=== PATIENT | male | born 1935 | race Caucasian/White ===

== ENCOUNTER → 2016-07-23 19:44 | Outpatient (CLI) | payer MEDICARE, BC ==
[2013-12-03 13:33] VITALS: BMI 31.3
[~2016-07-23 19:44] MED LIST: AMBIEN10 MG PO; ATIVAN1 MG; CHILDREN'S ASPI81 MG PO; LISINOPRIL5 MG PO; LOPRESSOR25 MG PO; MYFORTIC360 MG PO; PACERONE100 MG PO; PEPCID40 MG PO; PREDNISONE5 MG PO; PRILOSEC20 MG PO; SANDIMMUNE100 MG PO
[2016-07-23 21:03] LABS: ANION GAP 12.2 mmol/L (8-16); CALCIUM 9.6 mg/dL (8.5-10.1); CARBON DIOXIDE 24.4 mmol/L (21.0-32.0); CREATININE - SERUM 1.4 mg/dL (0.6-1.3); MAGNESIUM - SERUM 1.6 mg/dL (1.8-2.4); POTASSIUM - SERUM 4.6 mmol/L (3.5-5.1); T4 THYROXINE 3.8 ug/dL (4.7-13.3); THYROID STIMULATING HORMONE 1.23 uIU/mL (0.36-3.74)
== END | disposition home or self-care (01) ==
LOC: D.LABREF 19:44
PROVIDERS: Internal Medicine Cardiovascular Disease
DX: I48.91 Unspecified atrial fibrillation (principal); I25.10 Atherosclerotic heart disease of native coronary artery without angina pectoris

== ENCOUNTER 2018-12-09 13:05 | Observation (INO) | payer MEDICARE, BC ==
[~2018-12-09] VITALS: Ht 175.3 cm; Wt 87.3 kg
--- NOTE | ~2018-12-09 | HEMODYNAMI ---
PATIENT:TOM SIMS MEDICAL RECORD: [id number] : 35 LOCATION:[facility] D.2124 ADMISSION DATE: 12/09/18 Generatedon:12/10/20187:53 Patient name: TOM SIMS Patient #: [id number] SSN: [id number] : 1935 Date of study: 12/10/2018 Page: Of Hemodynamic Procedure Report Patient Data Patient Demographics Procedure consent was obtained First Name: TOM Gender: Male Last Name: LEVI : 1935 Middle Initial: A Age: 83 year(s) Patient #: [id number] Race: SSN: [id number] Additional ID: [id number] Contact details Address: [address] [place] [address] State: [place] City: [place] Zip code: [address] Past Medical History Allergies Allergen Reaction Date Comments Reported Other allergy 12/10/2018 ASPIRIN Admission Admission Data Admission Date: 12/09/2018 Admission Time: 13:05 Arrival Date: 12/10/2018 Arrival Time: 0:00 Admit Source: Other Insurance Payor: Medicare Room #: D.2124 [facility] #: [id number] Height (in.): 68.9 BSA: 2.03 (m2) Height (cm.): 175 BMI: 28.41 (kg/m2) Weight (lbs.): 191.8 Weight (kg.): 87 Lab Results Lab Result Date: 12/10/2018 Lab Result Time: 0:00 Biochemistry Name Units Result Min Max BUN mg/dl 23 --(----)-* 7 18 Creatinine mg/dl 1.2 --(---*)-- 0.6 1.3 eGFR ml/min 61.18499 *-(----)-- 90 120 NONAFRICAN Troponin l ng/ml 0.081 --(----)-* 0 0.06 CBC Name Units Result Min Max Hemoglobin g/dl 14.4 --(*---)-- 13.5 17.5 Procedure Procedure Types Cath Procedure Diagnostic Procedure [facility] w/Coronaries Sedation Charges Moderate Sedation up to 30 minutes Peripheral Cath Diagnostic Procedure Abd/Extremity Aortagram Procedure Description Procedure Date Procedure Date: 12/10/2018 Procedure Start Time: 7:27 Procedure End Time: 7:51 Procedure Staff Name Function Jose Trevino MD Performing Physician Vandana Teran RT Monitor Allison Ansari RT Monitor John Briggs RN Nurse Ligia Kohler RT Scrub Indication Chest pain Procedure Data Cath Procedure Fluoroscopy Diagnostic fluoroscopy Total fluoroscopy Time: 4.6 time: 4.6 min min Diagnostic fluoroscopy Total fluoroscopy dose: 510 dose: 510 mGy mGy Contrast Material Contrast Material Type Amount (ml) Isovue 300 84 Entry Location Entry Primary Successful Side Size Upsize Upsize Entry Closure Succes sful Closure Location (Fr) 1 (Fr) 2 (Fr) Remarks Device Remarks Femoral Right 5 Fr Exoseal artery Estimated blood loss: 5 ml Diagnostic catheters Device Type Used For End Catheter Placement MULTIPACK JL 4.0 5Fr Left Coronary catheter Angiography MULTIPACK 3DRC 5Fr Right Coronary catheter Angiography MULTIPACK Pigtail 5 Fr LV Angiography catheter Procedure Complications No complications Procedure Medications Medication Administration Route Dosage Oxygen etCO2 Nasal cannula 2 l/min Lidocaine 2% added to field 20 Heparin Flush Bag added to field 2 bags (1000units/500ml NS) 0.9% NaCl I.V. 75 ml/hr Versed I.V. 1 mg Fentanyl I.V. 50 mcg Versed I.V. 1 mg Fentanyl I.V. 50 mcg Hemodynamics Rest BSA: 2.03 (m2) HGB: 14.4 (g/dl) O2 Consumption: Estimated: 228.09 (ml/min) O2 Co nsumption indexed: Estimated:112.36 (ml/min/m) Heart Rate: 66 (bpm) Pressure Samples Time Site Value (mmHg) Purpose Heart Use Rate(bpm) 7:37 LV 132/1,11 Snapshot 90 7:38 AO 120/58(84) Pullback 67 7:38 LV 102/3,7 Pullback 67 Gradients Valve Time Site 1 Site 2 Mean SEP/DFP Peak To Heart Use (mmHg) (sec/min) Peak Rate (mmHg) (bpm) Aortic 7:38 LV AO 0 5 0 67 102/3,7 120/58(84) Calculations Valve P-P Mean Valve Index Valve Source Name Gradient Area Flow (cm2) Aortic 0 0 0 0 Snapshots Pre Cath Intra NCS Post Cath Vital Signs Time Heart Resp SPO2 etCO2 NIBP (mmHg) Rhythm Pain Sedation Rate (ipm) (%) (mmHg) Status Level (bpm) 7:12:17 67 21 98 19.5 140/78(128) NSR 0 (11) 10(A) , No pain 7:16:39 72 22 97 0 136/77(116) NSR 0 (11) 10(A) , No pain 7:20:59 65 17 95 0 130/68(110) NSR 0 (11) 10(A) , No pain 7:25:17 64 18 95 14.3 127/70(107) NSR 0 (11) 9(A) , No pain 7:29:36 65 17 95 0 123/73(105) NSR 0 (11) 9(A) , No pain 7:33:50 64 11 96 9 125/67(103) NSR 0 (11) 9(A) , No pain 7:37:56 90 16 95 24 100/84(92) NSR 0 (11) 9(A) , No pain 7:42:51 65 15 96 10.5 123/72(103) NSR 0 (11) 10(A) , No pain 7:47:08 65 14 97 9.7 129/73(113) NSR 0 (11) 10(A) , No pain 7:51:22 65 17 97 8.2 126/81(108) NSR 0 (11) 10(A) , No pain Medications Time Medication Route Dose Verified Delivered Reason Notes Effe ctiveness by by 7:12:21 Oxygen etCO2 2 Jose Buffie used for Nasal l/min Uriel Briggs RN procedure cannula 7:12:30 Lidocaine 2% added 20ml Jose Jose for local to vial Uriel Trevino MD anesthetic field 7:12:36 Heparin Flush added 2 Jose Jose used for Bag to bags Uriel Trevino MD procedure (1000units/500ml field NS) 7:12:45 0.9% NaCl I.V. 75 Jose Buffie Per ml/hr Uriel Briggs RN physician 7:20:03 Versed I.V. 1 mg Jose Buffie for Uriel Briggs RN sedation 7:20:09 Fentanyl I.V. 50 Jose Dylonie for mcg Uriel Briggs RN sedation 7:28:36 Versed I.V. 1 mg Jose John for Uriel Briggs RN sedation 7:28:39 Fentanyl I.V. 50 Jose Dylonie for mcg Uriel Briggs RN sedation Procedure Log Time Note 6:51:54 Informed consent obtained and on chart 6:52:44 Indication : Chest pain 6:52:54 Procedure Status Urgent Heart Cath (IP). 6:52:58 John Briggs RN sent for patient. Start room use. 6:53:00 Time tracking: Regular hours (M-F 7:00 - 5:00) 6:53:08 Plan of Care:Hemodynamics will remain stable., Cardiac rhythm will remain stable., Comfort level will be maintained., Respiratory function will remain adequate., Patient/ family verbilizes understanding of procedure., Procedure tolerated without complication., Recovers from procedure without complications.. 6:53:28 ACC Patient presents with Stable Angina CCS Anginal Class 2--Slight limitation of ordinary activity. 6:59:17 Arrival Date: 12/10/2018 12:00:00 AM 6:59:36 Admit Source: Other 6:59:53 Insurance Payor : Medicare 6:59:56 Patient Height : 68.9 inches 7:00:01 Patient Weight : 191.8 lbs 7:01:35 Lab Result : Hemoglobin 14.4 g/dl 7:01:35 Lab Result : eGFR NONAFRICAN 61.07855 ml/min 7:01:35 Lab Result : Troponin l 0.081 ng/ml 7:01:35 Lab Result : BUN 23 mg/dl 7:01:35 Lab Result : Creatinine 1.2 mg/dl 7:01:49 Patient received from Med II to CCL 1 Alert and oriented. Tansferred to table in Supine position. 7:02:27 Patient allergic to Other allergyASPIRIN 7:10:51 ACCPatient has been prescribed/administered the following anti-anginal medication within the last 2 weeks: None 7:10:55 Warm blankets applied, and inocencia hugger turned on for patient comfort. 7:10:56 Correct patient and procedure confirmed by team. 7:10:57 ECG and BP/O2 sat monitors applied to patient. 7:11:00 Vital chart was started 7:11:02 Baseline sample Acquired. 7:11:10 Rhythm: sinus rhythm 7:11:12 Full Disclosure recording started 7:11:13 7:11:22 H&P Date Dictated: 12/10/2018 Within 30 days and on chart.. 7:11:24 Pre-procedure instructions explained to patient. 7:11:25 Pre-op teaching completed and patient verbalized understanding. 7:11:43 Family in patients room. 7:11:45 Patient NPO since Midnight. 7:12:15 Is the patient allergic to Iodine/contrast media? No. 7:12:21 Oxygen 2 l/min etCO2 Nasal cannula was administered by John Briggs RN; used for procedure; Verbal order read back and verified. 7:12:30 Lidocaine 2% 20ml vial added to field was administered by Jose Trevino MD; for local anesthetic; Verbal order read back and verified. 7:12:36 Heparin Flush Bag (1000units/500ml NS) 2 bags added to field was administered by Jose Trevino MD; used for procedure; Verbal order read back and verified. 7:12:40 Was the patient premedicated? Yes 7:12:43 Is patient on blood thinner?No 7:12:45 0.9% NaCl 75 ml/hr I.V. was administered by John Briggs RN; Per physician; Verbal order read back and verified. 7:13:00 Patient diabetic? No. 7:13:04 ----Pre-sedation anethsthesia assessment.---- 7:13:29 Previous problem with sedation/anesthesia? No ? 7:13:32 Snore? Yes 7:13:34 Sleep apnea? No 7:13:36 Deviated septum? No 7:13:38 Opens mouth fully? Yes 7:13:41 Sticks out tongue? Yes 7:13:45 Airway obstruction? No ? 7:13:56 Dentures? Yes IN TIGHT 7:14:43 Pre procedure: right dorsailis pedis pulse 1+ Palpable, but thready & weak; easily obliterated 7:14:52 Patient pain scale 0/10 ?. 7:15:04 IV patent on arrival in right hand with 0.9% NaCl at [facility]. 7:15:15 Lab results completed and on chart. 7:15:23 Risk of Mortality: 0.1 7:15:27 Risk of blood transfusion: 0.3 7:15:32 Risk of HAO: 0.7 7:15:37 Right groin area was prepped with chlora-prep and draped in sterile fashion 7:15:40 Alarms reviewed by R. N. 7:15:41 Sharps counted by scrub and verified by R.N. 7:15:56 Physician arrived 7:15:58 --------ALL STOP TIME OUT------ 7:15:59 Final Timeout: patient, procedure, and site verified with staff and physician. All members of the team are in agreement. 7:16:02 Right groin site verified by team. 7:16:08 Fire Safety Assessment: A--An alcohol-based skin anteseptic being used preoperatively., C--Open oxygen or nitrous oxide is being used., D--An ESU, laser, or fiber-optic light is being used. 7:16:22 Physical assessment completed. ASA score P 3 - A patient with severe systemic disease as per Jose Trevino MD. 7:16:29 2) 60-89 Mildly reduced kidney function, and other findings (as for stage 1) point to kidney disease. 7:16:35 Maximum allowable contrast dose (3.7 X eGFR X 0.75)169 ml. 7:16:41 Sedation plan: IV Moderate Sedation Medication:Versed, Fentanyl 7:16:49 Use device set Femoral Dx 7:16:51 ACIST Syringe (10902) opened to sterile field. 7:16:51 Bag Decanter () opened to sterile field. 7:16:52 Medline Cath Pack ([id number]) opened to sterile field. 7:16:55 ACIST Hand Control (28029) opened to sterile field. 7:16:56 ACIST Manifold (59129) opened to sterile field. 7:16:57 DIAGNOSTIC Multipack 5Fr catheter set (RD3000) opened to sterile field. 7:16:58 Tegaderm 4 x 4 (1626W) opened to sterile field. 7:17:00 SHEATH 5FR Lamont (EXG131) opened to sterile field. 7:17:01 EMERALD Guide Wire (336-027) opened to sterile field. 7:20:03 Versed 1 mg I.V. was administered by John Briggs RN; for sedation; Verbal order read back and verified. 7:20:09 Fentanyl 50 mcg I.V. was administered by John Briggs RN; for sedation; Verbal order read back and verified. 7:21:52 PT HAS HAD KIDNEY TRANSPLANT. USING RIGHT GROIN TO SAVE ON CONTRAST. 7:23:01 Zero performed for pressure channel P1 7:27:07 Procedure started. 7:27:44 Local anesthetic to right femoral artery with Lidocaine 2% by Jose Trevino MD.INITIAL ACCESS ONLY 7:28:36 Versed 1 mg I.V. was administered by John Briggs RN; for sedation; Verbal order read back and verified. 7:28:39 Fentanyl 50 mcg I.V. was administered by John Briggs RN; for sedation; Verbal order read back and verified. 7:29:02 A 5 Fr sheath was inserted into the Right Femoral artery 7:29:25 A MULTIPACK JL 4.0 5Fr catheter was advanced over the wire and used for Left Coronary Angiography. 7:30:50 LCA angiography performed. 7:31:06 Injector settings: Ml/sec: 3, Volume: 6, 7:32:41 Catheter removed. 7:32:59 A MULTIPACK 3DRC 5Fr catheter was advanced over the wire and used for Right Coronary Angiography. 7:34:25 RCA angiography performed. 7:34:43 ACCDominant side:Right 7:36:24 Catheter removed. 7:36:33 A MULTIPACK Pigtail 5 Fr catheter was advanced over the wire and used for LV Angiography. 7:37:45 LV gram done using LEZAMA 7:38:03 LV hemodynamics recorded. 7:38:26 EF : 60 % 7:38:45 Injector settings: Ml/sec: 10, Volume: 20, 7:41:31 CATH PULLED DOWN TO BIFIRCATION FOR IMAGING. 7:41:52 Abdominal Aortagram was performed. 7:42:08 Injector settings: Ml/sec: 10, Volume: 20, 7:44:44 Catheter removed. 7:44:46 EXOSEAL 5Fr (EX500) opened to sterile field. 7:45:05 Sheath removed intact; hemostasis achieved with Exoseal to the Right Femoral artery. 7:45:57 Procedure ended.(Physican Out) 7:47:01 Fluoroscopy time 04.60 minutes. 7:47:08 Fluoroscopy dose: 510 mGy 7:47:08 Flurop Dose total: 510 7:47:17 Dose Area Product 14150 mGy/cm. 7:47:25 Contrast amount:Isovue 300 84ml. 7:47:31 Maximum allowable dose exceeded? No. 7:47:32 Sharps counted by scrub and verified by R.N. 7:47:35 Insertion/operative site no bleeding no hematoma. 7:47:40 Post-op/insertion site Right Femoral artery dressed using a 4 x 4 and Tegaderm. 7:47:47 Post right femoral artery:stable 7:47:50 Post Procedure Pulses reassessed and unchanged 7:47:56 Post-procedure physical assessment completed. ASA score P 3 - A patient with severe systemic disease as per Jose Trevino MD. 7:48:01 Post procedure rhythm: unchanged. 7:48:05 Estimated blood loss: 5 ml 7:48:07 Post procedure instruction explained to patient.Patient verbalizes understanding. 7:48:09 Patient needs reinforcement of post procedure teaching. 7:49:15 Procedure type changed to Cath procedure, Diagnostic procedure, LHC, LHC w/Coronaries, Sedation Charges, Moderate Sedation up to 30 minutes, Peripheral Cath Diagnostic Procedure, Abd/Extremity, Aortagram 7:49:46 Procedure and supply charges have been captured, reviewed, submitted and are correct. 7:50:25 Procedure Complication : No complications 7:50:30 Vital chart was stopped 7:50:36 [facility] Findings: mild to moderate CAD (<70%) 7:50:43 Operative report dictated upon procedure completion. 7:50:46 See physician's report for complete and final results. 7:50:53 Report given to [facility]. 7:50:57 Patient transfered to [facility] with Bed. 7:51:01 Procedure ended. 7:51:01 Full Disclosure recording stopped 7:51:04 End room use (Document Last) Device Usage Item Name Manufacture Quantity Catalog Hospital Part Current Minimal L ot# / Number Charge Number Stock Stock Serial# Code ACIST Acist 1 03453 129639 271139 645946 20 Syringe Medical (61132) Systems Inc Bag Microtek 1 2001S 032115 23674 340652 5 Decanter Medical Inc. () Medline Medline 1 [id number] 461228 25223 759010 5 Cath Pack ([id number]) ACIST Hand Acist 1 77277 986218 357314 753344 5 Control Medical (93884) Systems Inc ACIST Acist 1 11116 306539 147197 921301 5 Manifold Medical (89615) Systems Inc DIAGNOSTIC Cardinal 1 [id number] 123989 69992 068576 30 Multipack Health 5Fr catheter set (UW9387) Tegaderm 4 3M 1 1626W [id number] 143032 091441 5 x 4 (1626W) SHEATH 5FR Terumo 1 NCD870 162232 913552 746096 5 Lamont (LZV755) EMERALD Cardinal 1 502-455 695999 760482 448561 5 Guide Wire [facility] (502-455) MULTIPACK Cardinal 1 307327 5 JL 4.0 5Fr Health catheter MULTIPACK Cardinal 1 420907 5 3DRC 5Fr Health catheter MULTIPACK Cardinal 1 763992 5 Pigtail 5 Health Fr catheter EXOSEAL 5Fr Cardinal 1 EX500 996463 214739 041692 10 (EX500) Health Signature Audit [place] Stage Time Signature Unsigned Intra-Procedure 12/10/2018 Allison 7:52:09 AM Elan RT(R) (CV) Intra-Procedure 12/10/2018 John Briggs RN 7:52:44 AM Intra-Procedure 12/10/2018 Jose Trevino MD 7:53:17 AM [facility] [address] [place] [address]
[2018-12-09] MEDS ORDERED: MYSOLINE 50 MG50 MG PO (13:16)
[2018-12-09] MEDS ORDERED: NEURONTIN 300300 MG PO (13:16)
[2018-12-09] MEDS ORDERED: ULORIC40 MG PO (13:17)
[2018-12-09 13:34] VITALS: BP 139/65
[2018-12-09 13:41] VITALS: BP 104/56
[2018-12-09 13:50] LABS: BASOPHILS 0.3 % (0-2); EOSINOPHILS 0.9 % (0-7); HEMATOCRIT 43.1 % (42.0-54.0); HEMOGLOBIN 14.4 g/dL (13.5-17.5); IMMATURE GRANULOCYTES 0.6 % (0-5); LYMPHOCYTES 18.4 % (15-50); MCH 31.2 pg (26.0-34.0); MCHC 33.4 g/dL (31.0-37.0); MCV 93.3 fL (80.0-100.0); MEAN PLATELET VOLUME 10.6 fL (7.4-10.4); MONOCYTES 11.5 % (2-11); NEUTROPHILS 68.3 % (40-80); PLATELET COUNT 118 10x3/uL (130-400); RBC 4.62 10x6/uL (4.20-6.10); RDW 14.1 % (11.5-14.5); WBC 7.1 10x3/uL (4.8-10.8)
[2018-12-09 14:00] LABS: CALC OSMOLALITY 268 mosm/kg (275-300); CALCIUM 9.4 mg/dL (8.5-10.1); CARBON DIOXIDE 24.5 mmol/L (21.0-32.0); CHLORIDE - SERUM 101 mmol/L (98-107); CREATININE - SERUM 1.2 mg/dL (0.6-1.3); GLUCOSE 89 mg/dL (74-106); POTASSIUM - SERUM 4.6 mmol/L (3.5-5.1); SODIUM 133 mmol/L (136-145); UREA NITROGEN 23 mg/dL (7-18); eGFR NON AFRICAN AMERICAN 61 mL/min (90-120)
[2018-12-09 14:29] VITALS: BP 115/66
[2018-12-09 14:34] LABS: ALBUMIN 3.5 g/dL (3.4-5.0); ALKALINE PHOSPHATASE 74 U/L (46-116); ALT (SGPT) 32 U/L (10-68); BILIRUBIN - TOTAL 0.93 mg/dL (0.2-1.3); CKMB 3.8 U/L (0.0-3.6); CREATINE KINASE 36 UL (21-232); PROTEIN - SERUM 6.7 g/dL (6.4-8.2)
[2018-12-09 14:40] LABS: TROPONIN-I 0.065 ng/mL (0.000-0.060)
[2018-12-09 16:35] LABS: ANION GAP 16.4 mmol/L (8-16); CALCIUM 9.4 mg/dL (8.5-10.1); CARBON DIOXIDE 21.2 mmol/L (21.0-32.0); CREATININE - SERUM 1.2 mg/dL (0.6-1.3); POTASSIUM - SERUM 4.6 mmol/L (3.5-5.1)
[2018-12-09 16:41] LABS: CHOL - HDL RATIO 2.7 ratio (2.3-4.9); LDL-HDL RATIO 1.3 ratio (1.5-3.5)
--- NOTE | 2018-12-09 17:38 | NUR ---
RECIVED FROM ER TO ROOM 2124 PER WC.ADMIT ASSESSMENT PER RN
[2018-12-09 18:09] VITALS: BP 140/82; Ht 175.3 cm; Wt 87.3 kg
--- NOTE | 2018-12-09 19:00 | NUR ---
PT SITTING UP IN BED EATING DINNER. HE DENIES PAIN OR NEEDS. VERBALIZED UNDERSTANDING NOT TO EAT OR DRINK ANYTHING AFTER MIDNIGHT FOR HEART CATH TOMORROW. BED LOW AND CALL LIGHT IN REACH.
[2018-12-09 20:00] VITALS: BP 138/70
--- NOTE | 2018-12-09 20:37 | NUR ---
NEHEMIAS ORDONEZ WITH CONTACTED REGARDING RESTARTING PTS HOME MEDICATION OF ATIVAN 1MG AT BEDTIME. ORDER GIVEN TO RESTART.
[2018-12-09 23:00] VITALS: BP 113/50
[2018-12-10 04:30] VITALS: BP 148/50
--- NOTE | 2018-12-10 08:08 | NUR ---
BACK FROM SOCIALLY RESPONSIBLE INVESTMENT ADVISER. ALERT AND ORIENTED. TELEMERTY SHOWS SR.RIGHT GROIN SOFT WITH DRSG DRY AND INTACT. PPP. FAMILY AT BEDSIDE. V/S STABLE
[2018-12-10 08:10] VITALS: BP 127/60
--- NOTE | 2018-12-10 10:22 | NUR ---
RIGHT GROIN SOFT WITH DRG DRY AND INTACT. PPP. WILL MONITOR
[2018-12-10 10:58] LABS: ANION GAP 11.9 mmol/L (8-16); CALCIUM 8.6 mg/dL (8.5-10.1); CARBON DIOXIDE 25.4 mmol/L (21.0-32.0); CREATININE - SERUM 1.1 mg/dL (0.6-1.3); POTASSIUM - SERUM 4.3 mmol/L (3.5-5.1)
--- NOTE | 2018-12-10 11:06 | NUR ---
PT DISCHARGED. IV DCD WITH TIP INTACT. CATH SITE SOFT WITH NO BLEEDING. TO PRIVATE CAR PER WHEEL CHAIR
== END 2018-12-10 11:09 | disposition home or self-care (01) ==
LOC: D.ER 13:05 → D.OPS 13:05 → D.M2 13:05 → OBSVTIME 15:17 → D.OPS 15:17 → EDSTATUS 16:39 → D.OPS 12-10 11:09 → D.M2 12-10 11:09 → EDSTATUS 12-14 08:00 → D.M2 12-14 11:15
PROVIDERS: Family Medicine; Internal Medicine Nephrology; ADMIT Internal Medicine Cardiovascular Disease; ATTEND Internal Medicine Cardiovascular Disease
DX: I25.110 Atherosclerotic heart disease of native coronary artery with unstable angina pectoris (principal); I10 Essential (primary) hypertension; Z94.0 Kidney transplant status

== ENCOUNTER → 2019-01-27 11:57 | Outpatient (CLI) | payer MEDICARE, BC ==
[2018-12-09 18:09] VITALS: BMI 28.4
[~2019-01-27 11:57] MED LIST changes: +MYSOLINE 50 MG50 MG PO; +NEURONTIN 300300 MG PO; +ULORIC40 MG PO
== END | disposition home or self-care (01) ==
LOC: D.US 11:57
PROVIDERS: ATTEND Internal Medicine Cardiovascular Disease
DX: M79.604 Pain in right leg (principal)

== ENCOUNTER → 2019-10-19 11:01 | Outpatient (CLI) | payer MEDICARE, BC ==
[2018-12-09 18:09] VITALS: BMI 28.4
== END | disposition home or self-care (01) ==
LOC: D.HCCECHO 11:01
PROVIDERS: ATTEND Internal Medicine Cardiovascular Disease
DX: I25.10 Atherosclerotic heart disease of native coronary artery without angina pectoris (principal)

== ENCOUNTER → 2019-11-29 19:42 | Outpatient (CLI) | payer MEDICARE, BC ==
[2018-12-09 18:09] VITALS: BMI 28.4
[2019-11-29 20:53] LABS: ANION GAP 16.7 mmol/L (8-16); CARBON DIOXIDE 22.6 mmol/L (21.0-32.0); CREATININE - SERUM 1.2 mg/dL (0.6-1.3); POTASSIUM - SERUM 4.3 mmol/L (3.5-5.1)
== END | disposition home or self-care (01) ==
LOC: D.LABREF 19:42
PROVIDERS: ATTEND Internal Medicine Cardiovascular Disease
DX: N28.9 Disorder of kidney and ureter, unspecified (principal); I10 Essential (primary) hypertension

== ENCOUNTER 2020-05-03 13:09 | Inpatient (IN) | payer MEDICARE, BC ==
[~2020-05-03] VITALS: Ht 175.3 cm; Wt 92.3 kg
[2020-05-03] VITALS (8 sets, daily range): BP systolic 108–159; BP diastolic 50–112; BMI 30.1
[~2020-05-03 13:09] MED LIST changes: -ATIVAN1 MG; +ATIVAN1 MG IV
[2020-05-03] MEDS ORDERED: PLAVIX75 MG PO (13:22)
[2020-05-03 13:36] LABS: CALC OSMOLALITY 284 mosm/kg (275-300); CALCIUM 9.6 mg/dL (8.5-10.1); CARBON DIOXIDE 18.1 mmol/L (21.0-32.0); CHLORIDE - SERUM 102 mmol/L (98-107); CREATININE - SERUM 1.5 mg/dL (0.6-1.3); POTASSIUM - SERUM 3.5 mmol/L (3.5-5.1); SODIUM 139 mmol/L (136-145); UREA NITROGEN 22 mg/dL (7-18); eGFR NON AFRICAN AMERICAN 47 mL/min (90-120)
[2020-05-03 13:37] LABS: GLUCOSE 174 mg/dL (74-106)
[2020-05-03 13:53] LABS: ALBUMIN 3.5 g/dL (3.4-5.0); ALKALINE PHOSPHATASE 107 U/L (30-120); ALT (SGPT) 19 U/L (10-68); AMYLASE - SERUM 59 U/L (25-115); BILIRUBIN - TOTAL 1.53 mg/dL (0.2-1.3); CKMB 1.2 U/L (0.0-3.6); CREATINE KINASE 52 UL (21-232); LIPASE 123 U/L (73-393); PROTEIN - SERUM 6.8 g/dL (6.4-8.2); TROPONIN-I 0.027 ng/mL (0.000-0.060)
[2020-05-03 13:59] LABS: BASOPHILS 0.2 % (0-2); EOSINOPHILS 0.7 % (0-7); HEMATOCRIT 45.1 % (42.0-54.0); HEMOGLOBIN 14.9 g/dL (13.5-17.5); IMMATURE GRANULOCYTES 0.6 % (0-5); LYMPHOCYTE ABS# 4.65 10x3/uL (1.32-3.57); LYMPHOCYTES 36.3 % (15-50); MCH 30.3 pg (26.0-34.0); MCV 91.7 fL (80.0-100.0); MEAN PLATELET VOLUME 11.2 fL (7.4-10.4); MONOCYTES 7.3 % (2-11); NEUTROPHIL ABS# 7.03 10x3/uL (1.78-5.38); NEUTROPHILS 54.9 % (40-80); RBC 4.92 10x6/uL (4.20-6.10); RDW 12.9 % (11.5-14.5); WBC 12.8 10x3/uL (4.8-10.8)
[2020-05-03 14:21] LABS: PLATELET COUNT 185 10x3/uL (130-400)
[2020-05-03 15:06] LABS: BACTERIA MANY HPF (NONE SEEN); BILIRUBIN NEGATIVE (NEGATIVE); KETONE NEGATIVE (NEGATIVE); NITRITE NEGATIVE (NEGATIVE); UROBILINOGEN NORMAL mg/dL (< 2); WHITE CELLS - URINE 0-5 HPF (0-1)
[2020-05-03 15:38] LABS: APTT 31.4 SECONDS (22.8-39.4); INR 1.49 (0.85-1.17); PROTIME 16.7 SECONDS (11.6-15.0)
--- NOTE | 2020-05-03 17:10 | NUR ---
PT ARRIVED TO ICU. PT IS A&OX4. HE HAS A LEFT HAND PIV INFUSING A BOLUS OF LR, ZOFRAN @ 4.6, AND VANC. HE HAS A BRIGGS DRAINING URINE. PT IS CURRENTLY REQUESTING PAIN MEDICATION. HE HAS HAD A LARGE BRIGHT RED BOWEL MOVEMENT. NEHEMIAS CARBONE PAGED. BED LOCKED AND IN LOWEST POSITION, CALL LIGHT WITHIN REACH. WILL CTM
[2020-05-03 18:10] LABS: HEMATOCRIT 43.4 % (42.0-54.0); HEMOGLOBIN 14.2 g/dL (13.5-17.5)
[2020-05-03 22:45] LABS: HEMATOCRIT 41.8 % (42.0-54.0); HEMOGLOBIN 13.8 g/dL (13.5-17.5)
[2020-05-04] VITALS (24 sets, daily range): BP systolic 92–158; BP diastolic 45–102; Ht 175.3 cm; Wt 92.3 kg
[2020-05-04 03:03] LABS: BASOPHILS 0.1 % (0-2); EOSINOPHILS 0 % (0-7); HEMATOCRIT 40.6 % (42.0-54.0); HEMOGLOBIN 13.6 g/dL (13.5-17.5); IMMATURE GRANULOCYTES 0.2 % (0-5); LYMPHOCYTE ABS# 1.92 10x3/uL (1.32-3.57); LYMPHOCYTES 12.6 % (15-50); MCHC 33.5 g/dL (31.0-37.0); MEAN PLATELET VOLUME 10.8 fL (7.4-10.4); MONOCYTES 7.9 % (2-11); NEUTROPHIL ABS# 12.02 10x3/uL (1.78-5.38); NEUTROPHILS 79.2 % (40-80); PLATELET COUNT 148 10x3/uL (130-400); RBC 4.54 10x6/uL (4.20-6.10); RDW 12.8 % (11.5-14.5); WBC 15.2 10x3/uL (4.8-10.8)
[2020-05-04 03:15] LABS: MCV 89.4 fL (80.0-100.0)
[2020-05-04 03:23] LABS: ALBUMIN 2.8 g/dL (3.4-5.0); ANION GAP 19.3 mmol/L (8-16); BILIRUBIN - TOTAL 1.21 mg/dL (0.2-1.3); CALCIUM 8.4 mg/dL (8.5-10.1); CARBON DIOXIDE 18.2 mmol/L (21.0-32.0); MAGNESIUM - SERUM 1.1 mg/dL (1.8-2.4); PHOSPHOROUS 3.2 mg/dL (2.5-4.9); PROTEIN - SERUM 5.6 g/dL (6.4-8.2); VANCOMYCIN - TROUGH 11.1 ug/mL (10.0-20.0)
[2020-05-04 03:44] LABS: CREATININE - SERUM 2.3 mg/dL (0.6-1.3); POTASSIUM - SERUM 4.5 mmol/L (3.5-5.1)
--- NOTE | 2020-05-04 07:07 | NUR ---
PATIENT HAD EPISODES OF BLOODY STOOL X 6 AND EMESIS X 2. STOOL SAMPLE SENT TO LAB FOR CDIFF. AFEBRILE. ALERT AND ORIENTED. SEE FLOWSHEETS FOR DETAILS.
[2020-05-04 07:08] LABS: HEMATOCRIT 37.3 % (42.0-54.0); HEMOGLOBIN 12.4 g/dL (13.5-17.5)
[2020-05-04 10:23] LABS: HEMATOCRIT 37.7 % (42.0-54.0); HEMOGLOBIN 12.6 g/dL (13.5-17.5)
--- NOTE | 2020-05-04 10:54 | NUR ---
Pt resting in bed with eyes closed, no distress noted. Pt has had 2 liquid stools and was cleaned and changed. Assessment per flow sheet, call light in reach, bed in low position. I have talked to his twice and waiting for the MDs to round.
[2020-05-04 13:50] LABS: HEMATOCRIT 37.2 % (42.0-54.0); HEMOGLOBIN 12.3 g/dL (13.5-17.5)
[2020-05-04 17:44] LABS: HEMATOCRIT 38.2 % (42.0-54.0); HEMOGLOBIN 12.8 g/dL (13.5-17.5)
[2020-05-04 17:52] LABS: ANION GAP 16.6 mmol/L (8-16); CALCIUM 8.2 mg/dL (8.5-10.1); CARBON DIOXIDE 18.4 mmol/L (21.0-32.0); CREATININE - SERUM 2.3 mg/dL (0.6-1.3)
[2020-05-05] VITALS (22 sets, daily range): BP systolic 120–171; BP diastolic 59–108
[2020-05-05 05:46] LABS: BASOPHILS 0 % (0-2); EOSINOPHILS 0 % (0-7); HEMATOCRIT 37.3 % (42.0-54.0); HEMOGLOBIN 12.3 g/dL (13.5-17.5); IMMATURE GRANULOCYTES 0.3 % (0-5); LYMPHOCYTE ABS# 0.43 10x3/uL (1.32-3.57); LYMPHOCYTES 4.2 % (15-50); MCH 29.6 pg (26.0-34.0); MCV 89.9 fL (80.0-100.0); MONOCYTES 5.8 % (2-11); NEUTROPHIL ABS# 9.26 10x3/uL (1.78-5.38); NEUTROPHILS 89.7 % (40-80); RBC 4.15 10x6/uL (4.20-6.10); RDW 13.1 % (11.5-14.5)
[2020-05-05 05:50] LABS: PLATELET COUNT 111 10x3/uL (130-400); WBC 10.3 10x3/uL (4.8-10.8)
[2020-05-05 06:14] LABS: ALBUMIN 2.3 g/dL (3.4-5.0); ANION GAP 17.5 mmol/L (8-16); BILIRUBIN - TOTAL 1.14 mg/dL (0.2-1.3); CALCIUM 8.2 mg/dL (8.5-10.1); CARBON DIOXIDE 17.7 mmol/L (21.0-32.0); POTASSIUM - SERUM 4.2 mmol/L (3.5-5.1); PROTEIN - SERUM 5.3 g/dL (6.4-8.2); VANCOMYCIN - TROUGH 12.6 ug/mL (10.0-20.0)
[2020-05-05 06:15] LABS: MAGNESIUM - SERUM 1.5 mg/dL (1.8-2.4); PHOSPHOROUS 4.6 mg/dL (2.5-4.9)
--- NOTE | 2020-05-05 06:32 | NUR ---
I have reviewed this patient and I concur with the Shift Assessment completed by the Licensed Practical Nurse today this shift.
--- NOTE | 2020-05-05 12:24 | NUR ---
Nutrition follow-up: Diet order: clear liquids due to continued bloody stools Pt reports feeling better today; however, pt is somewhat confused Labs reviewed Wt: 203# Pt continues to not meet estimated nutritional needs Will need to begin nutrition support soon if oral diet not able to advance within 48 hours. Follow-up: 05/08/20
[2020-05-06] VITALS (18 sets, daily range): BP systolic 120–183; BP diastolic 69–95
[2020-05-06 04:11] LABS: BASOPHILS 0 % (0-2); EOSINOPHILS 0 % (0-7); HEMATOCRIT 34.9 % (42.0-54.0); HEMOGLOBIN 11.5 g/dL (13.5-17.5); IMMATURE GRANULOCYTES 0.5 % (0-5); LYMPHOCYTE ABS# 0.48 10x3/uL (1.32-3.57); LYMPHOCYTES 5.9 % (15-50); MCH 29.6 pg (26.0-34.0); MCV 89.7 fL (80.0-100.0); MEAN PLATELET VOLUME 10.5 fL (7.4-10.4); MONOCYTES 7.3 % (2-11); NEUTROPHIL ABS# 7.07 10x3/uL (1.78-5.38); NEUTROPHILS 86.3 % (40-80); PLATELET COUNT 95 10x3/uL (130-400); RBC 3.89 10x6/uL (4.20-6.10); RDW 12.9 % (11.5-14.5); WBC 8.2 10x3/uL (4.8-10.8)
[2020-05-06 04:29] LABS: APTT 39.7 SECONDS (22.8-39.4); INR 1.71 (0.85-1.17); PROTIME 18.6 SECONDS (11.6-15.0)
[2020-05-06 04:38] LABS: D-DIMER-QUANTITATIVE 7.22 ug/mLFEU (0.20-0.54)
[2020-05-06 04:43] LABS: ALBUMIN 2.3 g/dL (3.4-5.0); ANION GAP 14.6 mmol/L (8-16); BILIRUBIN - TOTAL 0.87 mg/dL (0.2-1.3); CALCIUM 8.6 mg/dL (8.5-10.1); CARBON DIOXIDE 18.2 mmol/L (21.0-32.0); CREATININE - SERUM 2.1 mg/dL (0.6-1.3); MAGNESIUM - SERUM 1.8 mg/dL (1.8-2.4); PHOSPHOROUS 3.7 mg/dL (2.5-4.9); POTASSIUM - SERUM 3.8 mmol/L (3.5-5.1); PROTEIN - SERUM 5.2 g/dL (6.4-8.2); VANCOMYCIN - TROUGH 17.6 ug/mL (10.0-20.0)
--- NOTE | 2020-05-06 10:42 | NUR ---
Pt resting in bed and talking with his on the phone. The Pt appears confused this morning, but has periods were he is not as confused. Assessment and vitals per flow sheet, meds per MAR. Pt worked with PT in the bed, no acute distress noted, call light in reach, bed in low position.
--- NOTE | 2020-05-06 17:35 | NUR ---
Pt transfered to rm 2225, Pt transfered in bed and at bedside. Report given to nurse, call light in reach, bed in low position.
--- NOTE | 2020-05-06 18:01 | NUR ---
PATIENT TRANSFERRED FROM ICU AWAKE AND ALERT AT BEDSIDE SKIN WARM AND DRY RESP EVEN AND UNLABORED. AT BEDSIDE. NO COMPLAINTS NOTED. JESSICA.
--- NOTE | 2020-05-07 03:00 | NUR ---
I have reviewed this patient and I concur with the Shift Assessment completed by the Licensed Practical Nurse today this shift.
[2020-05-07 05:43] LABS: BASOPHILS 0.1 % (0-2); EOSINOPHILS 0.1 % (0-7); HEMATOCRIT 33.9 % (42.0-54.0); HEMOGLOBIN 11.1 g/dL (13.5-17.5); IMMATURE GRANULOCYTES 0.3 % (0-5); LYMPHOCYTE ABS# 1.28 10x3/uL (1.32-3.57); LYMPHOCYTES 11.8 % (15-50); MCH 29.4 pg (26.0-34.0); MCHC 32.7 g/dL (31.0-37.0); MCV 89.7 fL (80.0-100.0); MONOCYTES 6.8 % (2-11); NEUTROPHIL ABS# 8.77 10x3/uL (1.78-5.38); NEUTROPHILS 80.9 % (40-80); RBC 3.78 10x6/uL (4.20-6.10); RDW 12.9 % (11.5-14.5)
[2020-05-07 05:48] LABS: PLATELET COUNT 118 10x3/uL (130-400); WBC 10.8 10x3/uL (4.8-10.8)
[2020-05-07 06:06] LABS: ALBUMIN 2.3 g/dL (3.4-5.0); ANION GAP 12.6 mmol/L (8-16); CALCIUM 8.9 mg/dL (8.5-10.1); CARBON DIOXIDE 20.8 mmol/L (21.0-32.0); CREATININE - SERUM 1.7 mg/dL (0.6-1.3); MAGNESIUM - SERUM 1.7 mg/dL (1.8-2.4); PHOSPHOROUS 2.8 mg/dL (2.5-4.9); POTASSIUM - SERUM 3.4 mmol/L (3.5-5.1); PROTEIN - SERUM 5.1 g/dL (6.4-8.2); VANCOMYCIN - TROUGH 12.4 ug/mL (10.0-20.0)
[2020-05-07 08:30] VITALS: BP 178/86
--- NOTE | 2020-05-07 08:36 | NUR ---
RESTING IN BED, FAMILY IN ROOM, IV INFUSING, BRIGGS TO GRAVITY, DR POSADA ROUNDED THIS AM,CONT TO MONITOR
[2020-05-07 12:11] VITALS: BP 182/109
--- NOTE | 2020-05-07 17:34 | NUR ---
MEDICATED FOR ANXIETY, IN ROOM,
[2020-05-07 18:06] VITALS: BP 185/99
--- NOTE | 2020-05-07 18:30 | NUR ---
BP REMAINS ELEVATED, CALL PLACED TO [facility], NEW ORDERS NOTED FOR CLONIDINE, ADMINISTERED FOR BP OF 184/104, WILL PASS ON TO BI DEVELOPER ABOUT CONCERNS, IN ROOM
[2020-05-07 20:00] VITALS: BP 103/82
[2020-05-08] VITALS: BP 146/81
--- NOTE | 2020-05-08 03:00 | NUR ---
I have reviewed this patient and I concur with the Shift Assessment completed by the Licensed Practical Nurse today this shift.
[2020-05-08 04:00] VITALS: BP 137/86
[2020-05-08 07:03] LABS: ALBUMIN 2.5 g/dL (3.4-5.0); ALKALINE PHOSPHATASE 80 U/L (30-120); ALT (SGPT) 25 U/L (10-68); BILIRUBIN - TOTAL 1.46 mg/dL (0.2-1.3); CALCIUM 8.6 mg/dL (8.5-10.1); CARBON DIOXIDE 23.1 mmol/L (21.0-32.0); CHLORIDE - SERUM 106 mmol/L (98-107); GLUCOSE 73 mg/dL (74-106); PHOSPHOROUS 2.4 mg/dL (2.5-4.9); POTASSIUM - SERUM 3.5 mmol/L (3.5-5.1); PROTEIN - SERUM 5.1 g/dL (6.4-8.2); SODIUM 139 mmol/L (136-145); VANCOMYCIN - TROUGH 11.3 ug/mL (10.0-20.0); eGFR NON AFRICAN AMERICAN 76 mL/min (90-120)
[2020-05-08 07:06] LABS: CALC OSMOLALITY 283 mosm/kg (275-300); MAGNESIUM - SERUM 1.2 mg/dL (1.8-2.4); UREA NITROGEN 33 mg/dL (7-18)
[2020-05-08 07:25] LABS: BASOPHILS 0.1 % (0-2); EOSINOPHILS 1.6 % (0-7); HEMATOCRIT 37.9 % (42.0-54.0); HEMOGLOBIN 12.7 g/dL (13.5-17.5); IMMATURE GRANULOCYTES 0.4 % (0-5); LYMPHOCYTE ABS# 1.49 10x3/uL (1.32-3.57); LYMPHOCYTES 13.3 % (15-50); MCH 29.7 pg (26.0-34.0); MCHC 33.5 g/dL (31.0-37.0); MCV 88.6 fL (80.0-100.0); MEAN PLATELET VOLUME 10.1 fL (7.4-10.4); MONOCYTES 10.7 % (2-11); NEUTROPHIL ABS# 8.26 10x3/uL (1.78-5.38); NEUTROPHILS 73.9 % (40-80); PLATELET COUNT 130 10x3/uL (130-400); RBC 4.28 10x6/uL (4.20-6.10); RDW 12.9 % (11.5-14.5); WBC 11.2 10x3/uL (4.8-10.8)
--- NOTE | 2020-05-08 08:45 | NUR ---
ASSESSMENT PER FLOW SHEET. PATIENT IS WITHOUT DISTRESS. DENIES NEEDS.CALL LIGHT IN REACH. BED ALARM ON AND WORKING. AT BEDSIDE.
[2020-05-08 09:06] VITALS: BP 135/69
--- NOTE | 2020-05-08 11:13 | NUR ---
REHAB PRESCREENING Rehab referral received and chart reviewed. Mr. Pizano is a good candidate for acute inpatient rehab if he is agreeable to come. I will begin his electronic screen and he can be admitted to rehab when his physicians feel he is appropriate for discharge. Thank you for this referral! Kathrin Mckeon, CQ DEVELOPER Rehab PD
--- NOTE | 2020-05-08 12:22 | MORECARE ---
CASE MANAGEMENT DISCHARGE SUMMARY PATIENT: TOM SIMS UNIT: [id number] ADM DATE: 05/03/20 AGE: 84 : 35 SEX: M ROOM/BED: D.2225 AUTHOR: NADIA NEIL PHYSICIAN: REFERRING PHYSICIAN: RONALD HANDY MD DATE OF SERVICE: 05/08/20 Case Management Discharge Planning Summary DCP REVIEW SUMMARY ANTICIPATED D/C DATE: EXPECTED LOS : CASE STATUS: DCP Initiated INITIAL REVIEW: 05/03/2020 INITIAL REVIEWER: Aruna Guerra FINAL DISCHARGE DISPOSITION: : FINAL REVIEWER: FINAL REVIEW DATE: DCP Focus Questions & Answers DCP REV -DCP Review Added on: 05/08/20 12:16 pm QUESTION: ANSWER DCP Screen High Risk Factors: : Polypharmacy (greater than 10 meds) DCP Evaluation Patient's ability to cope with chronic illness : d. No chronic illness Mental health screen: : No mental health history Would patient like to participate in any Care Coordination programs (if applicable): : Not applicable Physical Status: : Independent with ADL's Baseline cognitive status: : *Oriented to person, place, situation, time and present Family / Caregiver's ability to cope with chronic illness: : a. Adequate (ability to meet patient's medical needs, ensures patient attends medical appts.) Living Arrangements: : Home with Spouse/Significant Other Medication Management: : Evidence of Polypharmacy (greater than 10 meds) Pharmacy name(s): : [facility] Does Patient have transportation to get home and to follow-up medical appointments when discharged from the hospital? : Yes Does the patient have electricity at home? : Yes Does the patient have running water in their house? : Yes Equipment in use: : Walker - Standard Abuse/Neglect: : None Problems identified by the patient regarding discharge: : VERY WEEK, WILL NEED REHAB Patient's current cognitive status: : Alert Functional screen assessment: : Unable to manage ADLs without immediate ongoing assistance Patient with capacity for self-care or can be cared for in same environment as prior to hospitalization? : No Is there a likelihood that the patient will require additional services to return to the preadmission environment? : Yes Results of this evaluation have been discussed with: : Spouse Patient and/or caregiver agree upon recommended discharge plan? : Yes Planned post hospital services available for patient? : Yes Planned post hospital services covered by insurance plan? : Yes DCP Re-evaluation Would patient like to participate in any Care Coordination programs (if applicable): : Not applicable PATIENT: TOM SIMS ENCOUNTER: [id number] MEDICAL RECORD#: [id number] ADMISSION DATE: 05/03/2020 DISCHARGE DATE: ATTENDING MD: RONALD BLACKMAN : AGE: 84 MARITAL STATUS: M DC PLAN ID: [id number] FACILITY: [facility] PRINTED ON: 05/08/20 12:22 CT All edits/amendments must be made on the electronic document DICTATION DATE: 05/08/20 122 CUSTOMER ASSOCIATE: DM 05/08/20 1222 RPT#: [id number] DC DATE: STATUS: ADM IN [facility] [address] [place] [address] END OF REPORT
--- NOTE | 2020-05-08 12:33 | MORECARE ---
CASE MANAGEMENT DISCHARGE SUMMARY PATIENT: TOM SIMS UNIT: [id number] ADM DATE: 05/03/20 AGE: 84 : 35 SEX: M ROOM/BED: D.2225 AUTHOR: RASHAAD,DOC PHYSICIAN: REFERRING PHYSICIAN: RONALD HANDY MD DATE OF SERVICE: 05/08/20 Case Management Discharge Planning Summary COMMENTS ENTERED DATE: 05/08/20 12:22 CT COMMENT TYPE: Discharge Planning REVIEWER: Aruna Guerra CM met with patient and his Thereas at bedside after obtaining verbal consent. CM discussed availability / needs of home health, REHAB and medical equipment. Identified patient will need inpatient rehab. CM spoke with about inpatient rehab and gave her phone number to inpatient rehab. She wants to talk with them and visit the rehab before she signs the choice form. She states his pcp is Dr. Manuel and he uses a walker at home. He was just in ICU before transferred to [facility], he has become very week and will need rehab prior to going home. I gave my contact information to the and waiting her call back. CM to follow and assist as needed. DCP REVIEW SUMMARY ANTICIPATED D/C DATE: EXPECTED LOS : CASE STATUS: DCP Initiated INITIAL REVIEW: 05/03/2020 INITIAL REVIEWER: Aruna Guerra FINAL DISCHARGE DISPOSITION: : FINAL REVIEWER: FINAL REVIEW DATE: DCP Focus Questions & Answers DCP REV -DCP Review Added on: 05/08/20 12:16 pm QUESTION: ANSWER DCP Screen High Risk Factors: : Polypharmacy (greater than 10 meds) DCP Evaluation Patient's ability to cope with chronic illness : d. No chronic illness Mental health screen: : No mental health history Would patient like to participate in any Care Coordination programs (if applicable): : Not applicable Physical Status: : Independent with ADL's Baseline cognitive status: : *Oriented to person, place, situation, time and present Family / Caregiver's ability to cope with chronic illness: : a. Adequate (ability to meet patient's medical needs, ensures patient attends medical appts.) Living Arrangements: : Home with Spouse/Significant Other Medication Management: : Evidence of Polypharmacy (greater than 10 meds) [facility]acy name([facility]): : [facility] Does Patient have transportation to get home and to follow-up medical appointments when discharged from the hospital? : Yes Does the patient have electricity at home? : Yes Does the patient have running water in their house? : Yes Equipment in use: : Walker - Standard Abuse/Neglect: : None Problems identified by the patient regarding discharge: : VERY WEEK, WILL NEED REHAB Patient's current cognitive status: : Alert Functional screen assessment: : Unable to manage ADLs without immediate ongoing assistance Patient with capacity for self-care or can be cared for in same environment as prior to hospitalization? : No Is there a likelihood that the patient will require additional services to return to the preadmission environment? : Yes Results of this evaluation have been discussed with: : Spouse Patient and/or caregiver agree upon recommended discharge plan? : Yes Planned post hospital services available for patient? : Yes Planned post hospital services covered by insurance plan? : Yes DCP Re-evaluation Would patient like to participate in any Care Coordination programs (if applicable): : Not applicable PATIENT: TOM SIMS ENCOUNTER: [id number] MEDICAL RECORD#: [id number] ADMISSION DATE: 05/03/2020 DISCHARGE DATE: ATTENDING MD: RONALD BLACKMAN : AGE: 84 MARITAL STATUS: M DC PLAN ID: [id number] FACILITY: [facility] PRINTED ON: 05/08/20 12:33 CT All edits/amendments must be made on the electronic document DICTATION DATE: 05/08/20 123 ROUGH AND TRUEING MACHINE OPERATOR: FRACISCO 05/08/20 1233 RPT#: [id number] DC DATE: STATUS: ADM IN [facility] [address] [place] [address] END OF REPORT
[2020-05-08 12:52] VITALS: BP 127/72
--- NOTE | 2020-05-08 13:00 | NUR ---
REMAINS AT BEDSIDE.PATIENT WITHOUT CHANGE.
--- NOTE | 2020-05-08 13:09 | NUR ---
Nutrition follow-up: Diet advanced to regular as tolerated with po intake ~25% of meals Labs reviewed Wt: 204# +BM PO intake slowly improving. Will continue to provide food choices with selective menus and honor food preferences. RDN will order Ensure with meals Follow-up: 05/11/20
[2020-05-08] MEDS ORDERED: PERFOROMIS20 MCG/21 INH (13:13)
[2020-05-08] MEDS ORDERED: ROCEPHIN 1 GM/D51 G1 IV (13:13)
[2020-05-08] MEDS ORDERED: ATROVENT 0.02%2.5 ML UPD (13:13)
[2020-05-08] MEDS ORDERED: Xopenex 0.63 MG INH INH (13:14)
[2020-05-08] MEDS ORDERED: Xopenex 0.63 MG INH UPD (13:14)
[2020-05-08] MEDS ORDERED: NORVASC10 MG PO (13:16)
[2020-05-08] MEDS ORDERED: BETAPACE 80 MG80 MG PO ×2 (13:17→18:28)
[2020-05-08] MEDS ORDERED: PULMICORT0.5 MG/21 UPD (13:18)
[2020-05-08] MEDS ORDERED: LIBRIUM25 MG PO (13:18)
[2020-05-08] MEDS ORDERED: MULTI-DAY VITAM1 TAB PO (13:19)
[2020-05-08] MEDS ORDERED: VITAMIN B-1100 M1 PO (13:19)
[2020-05-08] MEDS ORDERED: FLORAJEN3 CAPS460 MG PO (13:19)
[2020-05-08] MEDS ORDERED: FOLIC ACID1 MG PO (13:19)
--- NOTE | 2020-05-08 14:59 | MORECARE ---
CASE MANAGEMENT DISCHARGE SUMMARY PATIENT: TOM SIMS UNIT: [id number] ADM DATE: 05/03/20 AGE: 84 : 35 SEX: M ROOM/BED: D.2225 AUTHOR: RASHAAD,DOC PHYSICIAN: REFERRING PHYSICIAN: RONALD HANDY MD DATE OF SERVICE: 05/08/20 Case Management Discharge Planning Summary COMMENTS ENTERED DATE: 05/08/20 14:44 CT COMMENT TYPE: Discharge Planning REVIEWER: Aruna Mari PATIENT SIGNED IMM AND VENITA FOR INPATIENT REHAB AT [facility]. ANTICIPATE DC TO REHAB TODAY. CM TO FOLLOW AND ASSIST NEEDED. ENTERED DATE: 05/08/20 12:22 CT COMMENT TYPE: Discharge Planning REVIEWER: Aruna Guerra CM met with patient and his Theresa at bedside after obtaining verbal consent. CM discussed availability / needs of home health, REHAB and medical equipment. Identified patient will need inpatient rehab. CM spoke with about inpatient rehab and gave her phone number to inpatient rehab. She wants to talk with them and visit the rehab before she signs the choice form. She states his pcp is Dr. Manuel and he uses a walker at home. He was just in ICU before transferred to [facility], he has become very week and will need rehab prior to going home. I gave my contact information to the and waiting her call back. CM to follow and assist as needed. DCP REVIEW SUMMARY ANTICIPATED D/C DATE: EXPECTED LOS : CASE STATUS: DCP Initiated INITIAL REVIEW: 05/03/2020 INITIAL REVIEWER: Arunarosa Guerra FINAL DISCHARGE DISPOSITION: : FINAL REVIEWER: FINAL REVIEW DATE: DCP Focus Questions & Answers DCP REV -DCP Review Added on: 05/08/20 12:16 pm QUESTION: ANSWER DCP Screen High Risk Factors: : Polypharmacy (greater than 10 meds) DCP Evaluation Patient's ability to cope with chronic illness : d. No chronic illness Mental health screen: : No mental health history Would patient like to participate in any Care Coordination programs (if applicable): : Not applicable Physical Status: : Independent with ADL's Baseline cognitive status: : *Oriented to person, place, situation, time and present Family / Caregiver's ability to cope with chronic illness: : a. Adequate (ability to meet patient's medical needs, ensures patient attends medical appts.) Living Arrangements: : Home with Spouse/Significant Other Medication Management: : Evidence of Polypharmacy (greater than 10 meds) Pharmacy name(s): : [facility] Does Patient have transportation to get home and to follow-up medical appointments when discharged from the hospital? : Yes Does the patient have electricity at home? : Yes Does the patient have running water in their house? : Yes Equipment in use: : Walker - Standard Abuse/Neglect: : None Problems identified by the patient regarding discharge: : VERY WEEK, WILL NEED REHAB Patient's current cognitive status: : Alert Functional screen assessment: : Unable to manage ADLs without immediate ongoing assistance Patient with capacity for self-care or can be cared for in same environment as prior to hospitalization? : No Is there a likelihood that the patient will require additional services to return to the preadmission environment? : Yes Results of this evaluation have been discussed with: : Spouse Patient and/or caregiver agree upon recommended discharge plan? : Yes Planned post hospital services available for patient? : Yes Planned post hospital services covered by insurance plan? : Yes DCP Re-evaluation Would patient like to participate in any Care Coordination programs (if applicable): : Not applicable PATIENT: TOM SIMS ENCOUNTER: [id number] MEDICAL RECORD#: [id number] ADMISSION DATE: 05/03/2020 DISCHARGE DATE: ATTENDING MD: RONALD BLACKMAN : AGE: 84 MARITAL STATUS: M DC PLAN ID: [id number] FACILITY: [facility] PRINTED ON: 05/08/20 14:59 CT All edits/amendments must be made on the electronic document DICTATION DATE: 05/08/201458 TRANSPORTATION MAINTENANCE OPERATOR: FRACISCO 05/08/201458 RPT#: [id number] DC DATE: STATUS: ADM IN [facility] [address] [place] [address] END OF REPORT
[2020-05-08 16:16] VITALS: BP 140/69
--- NOTE | 2020-05-08 16:29 | NUR ---
REPORT TO TANIYA ON REHAB.
--- NOTE | 2020-05-08 16:37 | NUR ---
CALL FOR TRANSPORT TO REHAB
--- NOTE | 2020-05-08 17:36 | NUR ---
TO REHAB VIA BED
--- NOTE | 2020-05-08 17:51 | MORECARE ---
CASE MANAGEMENT DISCHARGE SUMMARY PATIENT: TOM SIMS UNIT: [id number] ADM DATE: 05/03/20 AGE: 84 : 35 SEX: M ROOM/BED: D.2225 AUTHOR: RASHAAD,DOC PHYSICIAN: REFERRING PHYSICIAN: RONALD HANDY MD DATE OF SERVICE: 05/08/20 Case Management Discharge Planning Summary COMMENTS ENTERED DATE: 05/08/20 14:44 CT COMMENT TYPE: Discharge Planning REVIEWER: Aruna Mari PATIENT SIGNED IMM AND VENITA FOR INPATIENT REHAB AT [facility]. ANTICIPATE DC TO REHAB TODAY. CM TO FOLLOW AND ASSIST NEEDED. ENTERED DATE: 05/08/20 12:22 CT COMMENT TYPE: Discharge Planning REVIEWER: Aruna Guerra CM met with patient and his Theresa at bedside after obtaining verbal consent. CM discussed availability / needs of home health, REHAB and medical equipment. Identified patient will need inpatient rehab. CM spoke with about inpatient rehab and gave her phone number to inpatient rehab. She wants to talk with them and visit the rehab before she signs the choice form. She states his pcp is Dr. Manuel and he uses a walker at home. He was just in ICU before transferred to [facility], he has become very week and will need rehab prior to going home. I gave my contact information to the and waiting her call back. CM to follow and assist as needed. DCP REVIEW SUMMARY ANTICIPATED D/C DATE: EXPECTED LOS : CASE STATUS: DCP Initiated INITIAL REVIEW: 05/03/2020 INITIAL REVIEWER: Arunarosa Guerra FINAL DISCHARGE DISPOSITION: : FINAL REVIEWER: FINAL REVIEW DATE: DCP Focus Questions & Answers DCP REV -DCP Review Added on: 05/08/20 12:16 pm QUESTION: ANSWER DCP Screen High Risk Factors: : Polypharmacy (greater than 10 meds) DCP Evaluation Patient's ability to cope with chronic illness : d. No chronic illness Mental health screen: : No mental health history Would patient like to participate in any Care Coordination programs (if applicable): : Not applicable Physical Status: : Independent with ADL's Baseline cognitive status: : *Oriented to person, place, situation, time and present Family / Caregiver's ability to cope with chronic illness: : a. Adequate (ability to meet patient's medical needs, ensures patient attends medical appts.) Living Arrangements: : Home with Spouse/Significant Other Medication Management: : Evidence of Polypharmacy (greater than 10 meds) Pharmacy name(s): : [facility] Does Patient have transportation to get home and to follow-up medical appointments when discharged from the hospital? : Yes Does the patient have electricity at home? : Yes Does the patient have running water in their house? : Yes Equipment in use: : Walker - Standard Abuse/Neglect: : None Problems identified by the patient regarding discharge: : VERY WEEK, WILL NEED REHAB Patient's current cognitive status: : Alert Functional screen assessment: : Unable to manage ADLs without immediate ongoing assistance Patient with capacity for self-care or can be cared for in same environment as prior to hospitalization? : No Is there a likelihood that the patient will require additional services to return to the preadmission environment? : Yes Results of this evaluation have been discussed with: : Spouse Patient and/or caregiver agree upon recommended discharge plan? : Yes Planned post hospital services available for patient? : Yes Planned post hospital services covered by insurance plan? : Yes DCP Re-evaluation Would patient like to participate in any Care Coordination programs (if applicable): : Not applicable PATIENT: TOM SIMS ENCOUNTER: [id number] MEDICAL RECORD#: [id number] ADMISSION DATE: 05/03/2020 DISCHARGE DATE: 05/08/2020 ATTENDING MD: RONALD BLACKMAN : AGE: 84 MARITAL STATUS: M DC PLAN ID: [id number] FACILITY: [facility] PRINTED ON: 05/08/20 17:50 CT All edits/amendments must be made on the electronic document DICTATION DATE: 05/08/201749 MARBLE POLISHER: FRACISCO 05/08/201749 RPT#: [id number] DC DATE:05/08/20 STATUS: DIS IN [facility] [address] [place] [address] END OF REPORT
[2020-05-08] MEDS ORDERED: ATIVAN0.5 MG PO (21:54)
[2020-05-09 07:15] LABS: IMMUNOGLOBULIN A 241 mg/dL (61-437); IMMUNOGLOBULIN G 679 mg/dL (603-1613)
--- NOTE | 2020-05-09 08:18 | MORECARE ---
CASE MANAGEMENT DISCHARGE SUMMARY PATIENT: TOM SIMS UNIT: [id number] ADM DATE: 05/03/20 AGE: 84 : 35 SEX: M ROOM/BED: D.2225 AUTHOR: RASHAAD,DOC PHYSICIAN: REFERRING PHYSICIAN: RONALD HANDY MD DATE OF SERVICE: 05/09/20 Case Management Discharge Planning Summary COMMENTS ENTERED DATE: 05/08/20 14:44 CT COMMENT TYPE: Discharge Planning REVIEWER: Aruna Mari PATIENT SIGNED IMM AND VENITA FOR INPATIENT REHAB AT [facility]. ANTICIPATE DC TO REHAB TODAY. CM TO FOLLOW AND ASSIST NEEDED. ENTERED DATE: 05/08/20 12:22 CT COMMENT TYPE: Discharge Planning REVIEWER: Aruna Gurera CM met with patient and his Theresa at bedside after obtaining verbal consent. CM discussed availability / needs of home health, REHAB and medical equipment. Identified patient will need inpatient rehab. CM spoke with about inpatient rehab and gave her phone number to inpatient rehab. She wants to talk with them and visit the rehab before she signs the choice form. She states his pcp is Dr. Manuel and he uses a walker at home. He was just in ICU before transferred to [facility], he has become very week and will need rehab prior to going home. I gave my contact information to the and waiting her call back. CM to follow and assist as needed. DCP REVIEW SUMMARY ANTICIPATED D/C DATE: EXPECTED LOS : CASE STATUS: DCP Initiated INITIAL REVIEW: 05/03/2020 INITIAL REVIEWER: Arunarosa Guerra FINAL DISCHARGE DISPOSITION: : FINAL REVIEWER: FINAL REVIEW DATE: DCP Focus Questions & Answers DCP REV -DCP Review Added on: 05/08/20 12:16 pm QUESTION: ANSWER DCP Screen High Risk Factors: : Polypharmacy (greater than 10 meds) DCP Evaluation Patient's ability to cope with chronic illness : d. No chronic illness Mental health screen: : No mental health history Would patient like to participate in any Care Coordination programs (if applicable): : Not applicable Physical Status: : Independent with ADL's Baseline cognitive status: : *Oriented to person, place, situation, time and present Family / Caregiver's ability to cope with chronic illness: : a. Adequate (ability to meet patient's medical needs, ensures patient attends medical appts.) Living Arrangements: : Home with Spouse/Significant Other Medication Management: : Evidence of Polypharmacy (greater than 10 meds) Pharmacy name(s): : [facility] Does Patient have transportation to get home and to follow-up medical appointments when discharged from the hospital? : Yes Does the patient have electricity at home? : Yes Does the patient have running water in their house? : Yes Equipment in use: : Walker - Standard Abuse/Neglect: : None Problems identified by the patient regarding discharge: : VERY WEEK, WILL NEED REHAB Patient's current cognitive status: : Alert Functional screen assessment: : Unable to manage ADLs without immediate ongoing assistance Patient with capacity for self-care or can be cared for in same environment as prior to hospitalization? : No Is there a likelihood that the patient will require additional services to return to the preadmission environment? : Yes Results of this evaluation have been discussed with: : Spouse Patient and/or caregiver agree upon recommended discharge plan? : Yes Planned post hospital services available for patient? : Yes Planned post hospital services covered by insurance plan? : Yes DCP Re-evaluation Would patient like to participate in any Care Coordination programs (if applicable): : Not applicable PATIENT: TOM SIMS ENCOUNTER: [id number] MEDICAL RECORD#: [id number] ADMISSION DATE: 05/03/2020 DISCHARGE DATE: 05/08/2020 ATTENDING MD: RONALD BLACKMAN : AGE: 84 MARITAL STATUS: M DC PLAN ID: [id number] FACILITY: [facility] PRINTED ON: 05/09/20 8:17 CT All edits/amendments must be made on the electronic document DICTATION DATE: 05/09/20816 LANDCARE OFFICER: FRACISCO 05/09/20816 RPT#: [id number] DC DATE:05/08/20 STATUS: DIS IN [facility] [address] [place] [address] END OF REPORT
--- NOTE | 2020-05-09 16:36 | MORECARE ---
CASE MANAGEMENT DISCHARGE SUMMARY PATIENT: TOM SIMS UNIT: [id number] ADM DATE: 05/03/20 AGE: 84 : 35 SEX: M ROOM/BED: D.2225 AUTHOR: RASHAAD,DOC PHYSICIAN: REFERRING PHYSICIAN: RONALD HANDY MD DATE OF SERVICE: 05/09/20 Case Management Discharge Planning Summary COMMENTS ENTERED DATE: 05/08/20 14:44 CT COMMENT TYPE: Discharge Planning REVIEWER: Aruna Mari PATIENT SIGNED IMM AND VENITA FOR INPATIENT REHAB AT [facility]. ANTICIPATE DC TO REHAB TODAY. CM TO FOLLOW AND ASSIST NEEDED. ENTERED DATE: 05/08/20 12:22 CT COMMENT TYPE: Discharge Planning REVIEWER: Aruna Guerra CM met with patient and his Theresa at bedside after obtaining verbal consent. CM discussed availability / needs of home health, REHAB and medical equipment. Identified patient will need inpatient rehab. CM spoke with about inpatient rehab and gave her phone number to inpatient rehab. She wants to talk with them and visit the rehab before she signs the choice form. She states his pcp is Dr. Manuel and he uses a walker at home. He was just in ICU before transferred to [facility], he has become very week and will need rehab prior to going home. I gave my contact information to the and waiting her call back. CM to follow and assist as needed. DCP REVIEW SUMMARY ANTICIPATED D/C DATE: EXPECTED LOS : CASE STATUS: DCP Initiated INITIAL REVIEW: 05/03/2020 INITIAL REVIEWER: Arunarosa Guerra FINAL DISCHARGE DISPOSITION: : FINAL REVIEWER: FINAL REVIEW DATE: DCP Focus Questions & Answers DCP REV -DCP Review Added on: 05/08/20 12:16 pm QUESTION: ANSWER DCP Screen High Risk Factors: : Polypharmacy (greater than 10 meds) DCP Evaluation Patient's ability to cope with chronic illness : d. No chronic illness Mental health screen: : No mental health history Would patient like to participate in any Care Coordination programs (if applicable): : Not applicable Physical Status: : Independent with ADL's Baseline cognitive status: : *Oriented to person, place, situation, time and present Family / Caregiver's ability to cope with chronic illness: : a. Adequate (ability to meet patient's medical needs, ensures patient attends medical appts.) Living Arrangements: : Home with Spouse/Significant Other Medication Management: : Evidence of Polypharmacy (greater than 10 meds) Pharmacy name([facility] : [facility] Does Patient have transportation to get home and to follow-up medical appointments when discharged from the hospital? : Yes Does the patient have electricity at home? : Yes Does the patient have running water in their house? : Yes Equipment in use: : Walker - Standard Abuse/Neglect: : None Problems identified by the patient regarding discharge: : VERY WEEK, WILL NEED REHAB Patient's current cognitive status: : Alert Functional screen assessment: : Unable to manage ADLs without immediate ongoing assistance Patient with capacity for self-care or can be cared for in same environment as prior to hospitalization? : No Is there a likelihood that the patient will require additional services to return to the preadmission environment? : Yes Results of this evaluation have been discussed with: : Spouse Patient and/or caregiver agree upon recommended discharge plan? : Yes Planned post hospital services available for patient? : Yes Planned post hospital services covered by insurance plan? : Yes DCP Re-evaluation Would patient like to participate in any Care Coordination programs (if applicable): : Not applicable PATIENT: TOM SIMS ENCOUNTER: [id number] MEDICAL RECORD#: [id number] ADMISSION DATE: 05/03/2020 DISCHARGE DATE: 05/08/2020 ATTENDING MD: RONALD BLACKMAN : AGE: 84 MARITAL STATUS: M DC PLAN ID: [id number] FACILITY: [facility] PRINTED ON: 05/09/20 16:35 CT All edits/amendments must be made on the electronic document DICTATION DATE: 05/09/201634 MACHINE CARTON MARKER: FRACISCO 05/09/201634 RPT#: [id number] DC DATE:05/08/20 STATUS: DIS IN [facility] [address] [place] [address] END OF REPORT
== END 2020-05-08 17:47 | DRG 871 ==
LOC: D.ER 13:09 → D.MS 14:34 → D.ICU 14:34 → D.MS 05-06 17:33
PROVIDERS: Family Medicine; Internal Medicine; Internal Medicine Pulmonary Disease; ADMIT Emergency Medicine; ATTEND Emergency Medicine
DX: A41.9 Sepsis, unspecified organism (principal); J96.01 Acute respiratory failure with hypoxia; J18.9 Pneumonia, unspecified organism; R65.21 Severe sepsis with septic shock; G93.41 Metabolic encephalopathy; N30.00 Acute cystitis without hematuria; J98.11 Atelectasis; N17.9 Acute kidney failure, unspecified; Z94.0 Kidney transplant status; E87.2 Acidosis; E86.0 Dehydration; K52.9 Noninfective gastroenteritis and colitis, unspecified; I12.9 Hypertensive chronic kidney disease with stage 1 through stage 4 chronic kidney disease, or unspecified chronic kidney disease; N18.9 Chronic kidney disease, unspecified; I25.10 Atherosclerotic heart disease of native coronary artery without angina pectoris; Z86.73 Personal history of transient ischemic attack (TIA), and cerebral infarction without residual deficits

== ENCOUNTER 2020-05-08 17:28 | Inpatient (IN) | payer MEDICARE, BC ==
[~2020-05-08] VITALS: Ht 175.3 cm; Wt 88.0 kg
[~2020-05-08 17:28] MED LIST changes: +ATROVENT 0.02%2.5 ML UPD; +BETAPACE 80 MG80 MG PO; +FLORAJEN3 CAPS460 MG PO; +FOLIC ACID1 MG PO; +LIBRIUM25 MG PO; +MULTI-DAY VITAM1 TAB PO; +NORVASC10 MG PO; +PERFOROMIS20 MCG/21 INH; +PLAVIX75 MG PO; +PULMICORT0.5 MG/21 UPD; +ROCEPHIN 1 GM/D51 G1 IV; +VITAMIN B-1100 M1 PO; +Xopenex 0.63 MG INH INH; +Xopenex 0.63 MG INH UPD
[2020-05-08 18:11] VITALS: BP 117/76; BMI 28.7
[2020-05-08] MEDS ORDERED: BETAPACE 80 MG80 MG PO (18:28)
--- NOTE | 2020-05-08 18:33 | NUR ---
PATIENT ADMITTED TO ROOM 1110. AT BEDSIDE. ADMISSION COMPLETE. BED LOW. BED ALARM ON. CALL BRYANT AND PERSONAL ITEMS IN REACH. WILL CONTINUE TO MONITOR.
[2020-05-08 19:09] VITALS: BP 100/73
--- NOTE | 2020-05-08 20:00 | NUR ---
PATIENTS IN ROOM WITH PATIENT. SIGNED ADMISSION PAPER WORK. PATIENT IS ALERT. SOME CONFUSION NOTED. BED ALARM ON. CALL LIGHT WITHIN REACH. VOICES NO NEEDS AT THIS TIME. WILL CONTINUE WITH PLAN OF CARE
[2020-05-08] MEDS ORDERED: ATIVAN0.5 MG PO (21:54)
--- NOTE | 2020-05-09 00:30 | NUR ---
PATIENT RESTING WELL AFTER GIVEN PRN PAIN MEDICATION FOR BILATERAL LEG PAIN AND LOWER BACK PAIN.
[2020-05-09 03:09] LABS: BILIRUBIN NEGATIVE (NEGATIVE); KETONE NEGATIVE (NEGATIVE); NITRITE NEGATIVE (NEGATIVE); UROBILINOGEN NORMAL mg/dL (< 2)
[2020-05-09 03:10] LABS: BACTERIA FEW HPF (NONE SEEN); SQUAMOUS EPITHELIAL 0-5 HPF (0-4)
--- NOTE | 2020-05-09 04:24 | NUR ---
URINE COLLECTED F/C. SENT TO LAB
[2020-05-09 06:44] LABS: CALC OSMOLALITY 281 mosm/kg (275-300); CALCIUM 8.4 mg/dL (8.5-10.1); CARBON DIOXIDE 27.4 mmol/L (21.0-32.0); CHLORIDE - SERUM 105 mmol/L (98-107); GLUCOSE 102 mg/dL (74-106); POTASSIUM - SERUM 3.3 mmol/L (3.5-5.1); SODIUM 138 mmol/L (136-145); UREA NITROGEN 28 mg/dL (7-18); eGFR NON AFRICAN AMERICAN 76 mL/min (90-120)
[2020-05-09 06:45] LABS: BASOPHILS 0.1 % (0-2); EOSINOPHILS 1.2 % (0-7); HEMATOCRIT 38.6 % (42.0-54.0); HEMOGLOBIN 12.9 g/dL (13.5-17.5); IMMATURE GRANULOCYTES 0.4 % (0-5); LYMPHOCYTE ABS# 1.39 10x3/uL (1.32-3.57); LYMPHOCYTES 13.6 % (15-50); MCH 29.8 pg (26.0-34.0); MCHC 33.4 g/dL (31.0-37.0); MCV 89.1 fL (80.0-100.0); MEAN PLATELET VOLUME 10.1 fL (7.4-10.4); MONOCYTES 12.9 % (2-11); NEUTROPHIL ABS# 7.32 10x3/uL (1.78-5.38); NEUTROPHILS 71.8 % (40-80); PLATELET COUNT 124 10x3/uL (130-400); RBC 4.33 10x6/uL (4.20-6.10); RDW 12.8 % (11.5-14.5); WBC 10.2 10x3/uL (4.8-10.8)
--- NOTE | 2020-05-09 07:35 | NUR ---
PT RESTING IN BED WITH EYES OPEN CALL LIGHT IN REACH WILL MONITER
[2020-05-09 07:55] VITALS: BP 109/74
[2020-05-09 15:36] VITALS: Ht 175.3 cm; Wt 88.0 kg
--- NOTE | 2020-05-09 18:13 | NUR ---
PT RESTING IN BED WITH EYES OPEN CALL LIGHT IN REACH NO PROBLEMS WILL MONITER
--- NOTE | 2020-05-09 19:36 | NUR ---
PT IN BED AWAKE, USING SPIROMETER, AT BESIDE, NO NEEDS VERBALIZED OR NOTED, FLUIDS/CL WITHIN REACH
[2020-05-09 20:00] VITALS: BP 140/71
[2020-05-10 06:58] LABS: BASOPHILS 0.1 % (0-2); EOSINOPHILS 1.5 % (0-7); HEMATOCRIT 40.7 % (42.0-54.0); HEMOGLOBIN 13.4 g/dL (13.5-17.5); IMMATURE GRANULOCYTES 0.6 % (0-5); LYMPHOCYTE ABS# 1.76 10x3/uL (1.32-3.57); LYMPHOCYTES 16.7 % (15-50); MCH 29.5 pg (26.0-34.0); MCHC 32.9 g/dL (31.0-37.0); MCV 89.6 fL (80.0-100.0); MEAN PLATELET VOLUME 10.2 fL (7.4-10.4); MONOCYTES 12.8 % (2-11); NEUTROPHIL ABS# 7.22 10x3/uL (1.78-5.38); NEUTROPHILS 68.3 % (40-80); RBC 4.54 10x6/uL (4.20-6.10); RDW 12.9 % (11.5-14.5); WBC 10.6 10x3/uL (4.8-10.8)
[2020-05-10 07:04] LABS: PLATELET COUNT 152 10x3/uL (130-400)
[2020-05-10 07:15] LABS: CALC OSMOLALITY 281 mosm/kg (275-300); CALCIUM 8.2 mg/dL (8.5-10.1); CARBON DIOXIDE 25.8 mmol/L (21.0-32.0); CHLORIDE - SERUM 106 mmol/L (98-107); GLUCOSE 92 mg/dL (74-106); SODIUM 139 mmol/L (136-145); UREA NITROGEN 25 mg/dL (7-18); eGFR NON AFRICAN AMERICAN 76 mL/min (90-120)
[2020-05-10 07:41] VITALS: BP 141/79
[2020-05-10 07:41] LABS: POTASSIUM - SERUM 3.8 mmol/L (3.5-5.1)
--- NOTE | 2020-05-10 15:55 | NUR ---
CARE TEAM MEETING; PATIENT ADMITTED TO REHB FROM ACUTE FLOOR. DISCHARGE PLANS ARE FOR PATIENT TO RETURN HOME WITH FAMILY. AT THIS TIME THERAPY ON HOLD DUE TO ABD PAIN AND VERY LOOSE STOOLS. PATIENT HAS FOLLOW UP APPOINTMENTS WITH DR. VENEGAS 05/29/20 @ 11:00, DR. MULLER 06/20/20 @ 11:15, DR. GILBERT OFFICE WILL CALL PATIENT WITH AN APPOINTMENT AT DISCHARGE , DR. DICKSON 05/24/20 @ 10:10. PATIENT WILL ALSO NEED AN APPOINTMENT WITH HIS PCP DR. COREEN DELONG . DME AT HOME IS A ROLLING WALKER. WILL CONTINUE TO FOLLOW WITH PATIENT.
--- NOTE | 2020-05-10 20:00 | NUR ---
AWAKE AND ALERT. SLURRED SPEECH. HX OF OLD CVA. O2/2L ON PER NASAL CANNULA. RIGHT FOREARM SALINE LOCK INTACT WITH SMALL AMOUNTOF DRY BLOOD NOTED AROUND SITE BUT NO REDNESS OR EDEMA. WILL MONITOR. 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 XRAY OF RIGHT KNEE ORDERED RELATED TO PAIN AND SWELLING IN RIGHT KNEE AREA. RESULTS SHOW SOME FUSION AND OSTEOPENIC BONES BUT NO FRACTURES OR DISLOCATION. SUGGEST WE WRAP THE KNEE IN ERIKA BANDAGE BEFORE THERAPY FOR COMFORT. I TOLD HER I WOULD DISCUSS THIS WITH THERAPIST BUT IF HE HAD NO OBJECTIONS I WOULD GLADLY DO IT. SHE VOICES UNDERSTANDING.
[2020-05-10 20:04] VITALS: BP 147/66
--- NOTE | 2020-05-10 22:10 | NUR ---
PATIENT VOIDED 100ML YESIKA URINE. WILL CONTINUE TO MONITOR.
--- NOTE | 2020-05-11 05:11 | NUR ---
QUIET HOURS. HAD LARGE INCONTINENCE EPISODE OF URINE. CLEANED AND BED LINENS CHANGED. O2/2L ON PER NASAL CANNULA. NO DISTRESS NOTED. CALL LIGHT IN REACH.
--- NOTE | 2020-05-11 07:05 | NUR ---
WHEN ROUNDING THIS MORNING, HE IS SLEEPY. WILL AROUSE TO MY VOICE, WEARING 2 LITERS IF 02. THE CALL LIGHT IS WITHIN REACH.
[2020-05-11 07:34] VITALS: BP 148/63
--- NOTE | 2020-05-11 08:12 | NUR ---
EKG DONE AND ON THE CHART, BLADDER SCAN READS 299 CC. HE IS VOIDING IN THE URNIAL AND SOMETIMES INCONTINENT. HE IS SLEEPY, BUT AROUSES TO MY VOICE.
[2020-05-11 09:05] LABS: BASOPHILS 0.3 % (0-2); EOSINOPHILS 2.4 % (0-7); HEMATOCRIT 39.9 % (42.0-54.0); HEMOGLOBIN 13.1 g/dL (13.5-17.5); IMMATURE GRANULOCYTES 0.4 % (0-5); LYMPHOCYTE ABS# 1.91 10x3/uL (1.32-3.57); LYMPHOCYTES 16.7 % (15-50); MCHC 32.8 g/dL (31.0-37.0); MCV 91.3 fL (80.0-100.0); MEAN PLATELET VOLUME 9.9 fL (7.4-10.4); MONOCYTES 13.8 % (2-11); NEUTROPHIL ABS# 7.59 10x3/uL (1.78-5.38); NEUTROPHILS 66.4 % (40-80); PLATELET COUNT 179 10x3/uL (130-400); RBC 4.37 10x6/uL (4.20-6.10); WBC 11.4 10x3/uL (4.8-10.8)
[2020-05-11 09:28] LABS: ALBUMIN 2.5 g/dL (3.4-5.0); ALKALINE PHOSPHATASE 94 U/L (30-120); ALT (SGPT) 15 U/L (10-68); BILIRUBIN - TOTAL 1.24 mg/dL (0.2-1.3); CALC OSMOLALITY 284 mosm/kg (275-300); CALCIUM 8.8 mg/dL (8.5-10.1); CHLORIDE - SERUM 107 mmol/L (98-107); GLUCOSE 107 mg/dL (74-106); POTASSIUM - SERUM 3.8 mmol/L (3.5-5.1); PRO BNP 5377 pg/mL (0-450); PROTEIN - SERUM 5.9 g/dL (6.4-8.2); SODIUM 141 mmol/L (136-145); UREA NITROGEN 25 mg/dL (7-18); eGFR NON AFRICAN AMERICAN 76 mL/min (90-120)
[2020-05-11 09:35] LABS: PROTIME 15.7 SECONDS (11.6-15.0)
[2020-05-11 09:36] LABS: APTT 36.2 SECONDS (22.8-39.4); INR 1.38 (0.85-1.17)
--- NOTE | 2020-05-11 11:12 | NUR ---
NEW IV STARTED TO THE LEFT OUTER AC, 22 G. REMOVED THE OLD IV FROM HIS LEFT HAND, IT WAS LEAKING. HE TOOK HIS MEDICATIONS SLOWLY, BUT WITHOUT ANY PROBLEMS. HE IS WEARING 2 LITERS OF OXYGEN. THE CALL LIGHT IS WITHIN REACH AND THE BED ALARM IS ON.
--- NOTE | 2020-05-11 13:01 | NUR ---
DUE TO CHANGE IN MEDICAL CONDITION PATIENT DISCHARGING FROM REHAB AND ADMITTING TO ACUTE FLOOR.
--- NOTE | 2020-05-11 15:06 | NUR ---
REPORT CALLED TO KENNETH TRUJILLO, HE IS GOING TO ROOM 2220.
== END 2020-05-11 16:03 | disposition short-term general hospital (02) | DRG 70 ==
LOC: D.REHAB 17:28
PROVIDERS: ADMIT Emergency Medicine; ATTEND Emergency Medicine
DX: G93.41 Metabolic encephalopathy (principal); J18.9 Pneumonia, unspecified organism; A41.9 Sepsis, unspecified organism; N17.9 Acute kidney failure, unspecified; N39.0 Urinary tract infection, site not specified; I12.9 Hypertensive chronic kidney disease with stage 1 through stage 4 chronic kidney disease, or unspecified chronic kidney disease; N18.9 Chronic kidney disease, unspecified; I48.91 Unspecified atrial fibrillation; F10.10 Alcohol abuse, uncomplicated; D64.9 Anemia, unspecified; I49.9 Cardiac arrhythmia, unspecified; I25.10 Atherosclerotic heart disease of native coronary artery without angina pectoris; G89.29 Other chronic pain; J44.9 Chronic obstructive pulmonary disease, unspecified; K21.9 Gastro-esophageal reflux disease without esophagitis; R53.1 Weakness; E83.42 Hypomagnesemia; E88.09 Other disorders of plasma-protein metabolism, not elsewhere classified; R00.0 Tachycardia, unspecified; R26.2 Difficulty in walking, not elsewhere classified

== ENCOUNTER 2020-05-11 15:00 | Inpatient (IN) | payer MEDICARE, BC ==
[~2020-05-11] VITALS: Ht 175.3 cm; Wt 81.6 kg
[~2020-05-11 15:00] MED LIST changes: +ATIVAN0.5 MG PO
[2020-05-11 16:57] VITALS: BP 122/73; BMI 26.6
--- NOTE | 2020-05-11 19:50 | NUR ---
@1950. UNABLE TO DO CTA AT THIS TIME DUE TO NO 20G. NURSE, AZUL, REINFORMED ME OF PT'S 'S CONCERN TO CONTRAST DUE TO PT'S TRANSPLANT KIDNEY. AZUL IS TO CALL AND GET CONSULT FOR RENAL AND VERIFY IT IS OKAY TO GIVE PT CONTRAST FOR CTA. AZUL TO CALL BACK.
[2020-05-11 20:00] VITALS: BP 147/68
--- NOTE | 2020-05-11 20:13 | NUR ---
SPOKE WITH NEHEMIAS MOISE ABOUT ORDERED CTA, PT CANNOT HAVE CONTRAST DUE TO HAVING ONLY ONE TRANSPLANTED KIDNEY. CTA CANCELLED AND VQ SCAN ORDERED PER NEHEMIAS MOISE. RENAL CONSULT FOR AM. VQ SCAN TO BE PERFORMED IN AM DUE TO NUCLEAR MED ON ORDER FROM [place]. NO OTHER NEEDS. LEAVING FOR NIGHT. WILL CONTINUE TO MONITOR.
[2020-05-12] VITALS: BP 129/69
[2020-05-12 04:00] VITALS: BP 173/73
--- NOTE | 2020-05-12 08:00 | NUR ---
PT RESTING QUIETLY IN BED WITH EYES CLOSED. PT AROUSES WITH NAME CALLED. PROVIDED BRIE CARE FOR URINE INCONTINENCE AT THIS TIME. O2 @ 2L NC IN PLACE. IV TO LEFT UPPER ARM WITH D5NS @ 50ML/HR INFUSING VIA PUMP. SITE WITHOUT REDNESS OR EDEMA. RADIOLOGY HERE TO TAKE FOR VQ SCAN PER ORDERS. EXPLAINED TO PT EVENTS TO ENSURE UNDERSTANDING. PT DENIES QUESTIONS ATT HIS TIME.
[2020-05-12 09:33] VITALS: BP 159/77
[2020-05-12 13:12] LABS: CALC OSMOLALITY 287 mosm/kg (275-300); CALCIUM 8.7 mg/dL (8.5-10.1); CARBON DIOXIDE 26.1 mmol/L (21.0-32.0); CHLORIDE - SERUM 105 mmol/L (98-107); GLUCOSE 150 mg/dL (74-106); MAGNESIUM - SERUM 1.3 mg/dL (1.8-2.4); PHOSPHOROUS 2.6 mg/dL (2.5-4.9); POTASSIUM - SERUM 4.1 mmol/L (3.5-5.1); SODIUM 141 mmol/L (136-145); UREA NITROGEN 24 mg/dL (7-18); eGFR NON AFRICAN AMERICAN 76 mL/min (90-120)
[2020-05-12 13:40] VITALS: BP 154/62
[2020-05-12 15:56] VITALS: Ht 175.3 cm; Wt 81.6 kg
[2020-05-12 17:47] VITALS: BP 171/73
[2020-05-12 20:13] VITALS: BP 140/88; BP 165/76
[2020-05-12 21:16] LABS: BILIRUBIN NEGATIVE (NEGATIVE); KETONE NEGATIVE (NEGATIVE); NITRITE NEGATIVE (NEGATIVE); UROBILINOGEN NORMAL mg/dL (< 2)
[2020-05-12 21:21] LABS: BACTERIA FEW HPF (NONE SEEN); SQUAMOUS EPITHELIAL NONE SEEN HPF (0-4); WHITE CELLS - URINE 0-5 HPF (0-1)
[2020-05-13 04:00] VITALS: BP 167/76
[2020-05-13 05:35] LABS: BASOPHILS 0.2 % (0-2); EOSINOPHILS 1.2 % (0-7); HEMATOCRIT 36.6 % (42.0-54.0); IMMATURE GRANULOCYTES 0.5 % (0-5); LYMPHOCYTE ABS# 2.03 10x3/uL (1.32-3.57); LYMPHOCYTES 18.4 % (15-50); MCH 29.8 pg (26.0-34.0); MCHC 32.8 g/dL (31.0-37.0); MCV 90.8 fL (80.0-100.0); MEAN PLATELET VOLUME 9.7 fL (7.4-10.4); NEUTROPHIL ABS# 7.48 10x3/uL (1.78-5.38); NEUTROPHILS 67.7 % (40-80); PLATELET COUNT 198 10x3/uL (130-400); RBC 4.03 10x6/uL (4.20-6.10)
[2020-05-13 06:12] LABS: ALBUMIN 2.2 g/dL (3.4-5.0); ALKALINE PHOSPHATASE 89 U/L (30-120); BILIRUBIN - TOTAL 1.29 mg/dL (0.2-1.3); CALC OSMOLALITY 281 mosm/kg (275-300); CALCIUM 8.4 mg/dL (8.5-10.1); CARBON DIOXIDE 24.9 mmol/L (21.0-32.0); CHLORIDE - SERUM 106 mmol/L (98-107); CREATININE - SERUM 0.8 mg/dL (0.6-1.3); GLUCOSE 103 mg/dL (74-106); MAGNESIUM - SERUM 1.3 mg/dL (1.8-2.4); PHOSPHOROUS 2.3 mg/dL (2.5-4.9); POTASSIUM - SERUM 3.8 mmol/L (3.5-5.1); PROTEIN - SERUM 5.6 g/dL (6.4-8.2); SODIUM 140 mmol/L (136-145); UREA NITROGEN 20 mg/dL (7-18); VANCOMYCIN - RANDOM 26.8 ug/mL (10.0-20.0); eGFR NON AFRICAN AMERICAN > 90 mL/min (90-120)
[2020-05-13 06:13] LABS: ALT (SGPT) 19 U/L (10-68)
[2020-05-13 08:36] VITALS: BP 112/67
--- NOTE | 2020-05-13 09:00 | NUR ---
ALERT AND ORIENTED TO SELF AND SURROUNDINGS WITH PRESENT. TOLERATED MEDICATIONS CRUSHED WITH PUDDING WELL. RHONCHI NOTED TO BLQ ANTERIOR. SCD'S INTACT WELL TELEMETRY. IVF INFUSING TO RT. F/A W/O ANY S/S OF INFECTION/INFILTRATION. POOR EFFORT NOTED WITH INSENTIVE SPIROMETRY. ENCOURAGED TO USE CALL LIGHT FOR ASSSIT.
--- NOTE | 2020-05-13 11:00 | NUR ---
NONPRODUCTIVE COUGH NOTED WITH NG SUCTION OBTAINED WITH MODERATE AMOUT OF BROWN SECRETIONS NOTED WITH GAG REFLEX NOTED. HOB AT 75 DEGREE ANGLE. O2 3L N/C AND NO DYSPNEA NOTED.
[2020-05-13 12:39] VITALS: BP 133/69
[2020-05-13 16:51] VITALS: BP 126/54
--- NOTE | 2020-05-13 19:20 | NUR ---
PATIENT RESTING IN BED WITH EYES CLOSED AND AT BEDSIDE. PATIENT AROUSES TO VOICE, HOWEVER, IS VERY LETHARGIC AND FALLS BACK ASLEEP QUICKLY. PATIENT AND DENY NEEDS AT THIS TIME. BED IN LOWEST POSITION AND CALL LIGHT IN REACH. ENCOURAGED PATIENT TO CALL WITH NEEDS.
[2020-05-13 20:15] VITALS: BP 131/63
[2020-05-14 00:46] VITALS: BP 131/63
[2020-05-14 04:00] VITALS: BP 147/75
[2020-05-14 04:43] LABS: BASOPHILS 0.2 % (0-2); EOSINOPHILS 0.7 % (0-7); HEMATOCRIT 36.1 % (42.0-54.0); HEMOGLOBIN 11.4 g/dL (13.5-17.5); IMMATURE GRANULOCYTES 0.3 % (0-5); LYMPHOCYTE ABS# 1.37 10x3/uL (1.32-3.57); LYMPHOCYTES 11.2 % (15-50); MCH 28.9 pg (26.0-34.0); MCHC 31.6 g/dL (31.0-37.0); MCV 91.6 fL (80.0-100.0); MEAN PLATELET VOLUME 10.4 fL (7.4-10.4); MONOCYTES 12.6 % (2-11); NEUTROPHIL ABS# 9.21 10x3/uL (1.78-5.38); PLATELET COUNT 212 10x3/uL (130-400); RBC 3.94 10x6/uL (4.20-6.10); WBC 12.3 10x3/uL (4.8-10.8)
[2020-05-14 05:07] LABS: ALBUMIN 2.1 g/dL (3.4-5.0); ALKALINE PHOSPHATASE 95 U/L (30-120); BILIRUBIN - TOTAL 0.94 mg/dL (0.2-1.3); CALCIUM 8.8 mg/dL (8.5-10.1); CARBON DIOXIDE 23.2 mmol/L (21.0-32.0); CHLORIDE - SERUM 107 mmol/L (98-107); CREATININE - SERUM 0.8 mg/dL (0.6-1.3); GLUCOSE 134 mg/dL (74-106); PHOSPHOROUS 2.5 mg/dL (2.5-4.9); POTASSIUM - SERUM 3.9 mmol/L (3.5-5.1); PROTEIN - SERUM 5.7 g/dL (6.4-8.2); SODIUM 139 mmol/L (136-145); eGFR NON AFRICAN AMERICAN > 90 mL/min (90-120)
[2020-05-14 05:11] LABS: ALT (SGPT) 24 U/L (10-68); CALC OSMOLALITY 285 mosm/kg (275-300); UREA NITROGEN 28 mg/dL (7-18)
[2020-05-14 09:19] VITALS: BP 137/79
[2020-05-14 13:35] VITALS: BP 129/57
[2020-05-14 17:56] VITALS: BP 116/47
--- NOTE | 2020-05-14 19:27 | NUR ---
PATIENT RESTING IN BED WITH NO S/S OF DISTRESS AND GUEST AT BEDSIDE. PATIENT DENIES NEEDS AT THIS TIME. BED IN LOWEST POSITION AND CALL LIGHT IN REACH. ENCOURAGED PATIENT TO CALL WITH NEEDS.
[2020-05-14 20:00] VITALS: BP 146/59
--- NOTE | 2020-05-14 21:58 | NUR ---
ADMINISTERED MEDS IN APPLESAUCE. STARTED WITH ANTI-REJECTION MEDS. PATIENT TOOK ANTI-REJECTION MEDS AND REFUSED OTHER PILLS.
[2020-05-15 03:56] LABS: BASOPHILS 0.3 % (0-2); EOSINOPHILS 0.8 % (0-7); HEMATOCRIT 36.4 % (42.0-54.0); HEMOGLOBIN 11.6 g/dL (13.5-17.5); IMMATURE GRANULOCYTES 0.5 % (0-5); LYMPHOCYTES 11.7 % (15-50); MCH 29.3 pg (26.0-34.0); MCHC 31.9 g/dL (31.0-37.0); MCV 91.9 fL (80.0-100.0); MEAN PLATELET VOLUME 10.3 fL (7.4-10.4); NEUTROPHIL ABS# 8.86 10x3/uL (1.78-5.38); NEUTROPHILS 73.7 % (40-80); PLATELET COUNT 227 10x3/uL (130-400); RBC 3.96 10x6/uL (4.20-6.10)
[2020-05-15 04:00] VITALS: BP 136/62
[2020-05-15 04:04] LABS: CALC OSMOLALITY 280 mosm/kg (275-300); CALCIUM 8.9 mg/dL (8.5-10.1); CARBON DIOXIDE 23.1 mmol/L (21.0-32.0); CHLORIDE - SERUM 106 mmol/L (98-107); CREATININE - SERUM 0.8 mg/dL (0.6-1.3); GLUCOSE 123 mg/dL (74-106); MAGNESIUM - SERUM 1.7 mg/dL (1.8-2.4); PHOSPHOROUS 2.1 mg/dL (2.5-4.9); SODIUM 137 mmol/L (136-145); UREA NITROGEN 29 mg/dL (7-18); VANCOMYCIN - TROUGH 20.1 ug/mL (10.0-20.0); eGFR NON AFRICAN AMERICAN > 90 mL/min (90-120)
[2020-05-15 09:36] VITALS: BP 140/65
[2020-05-15 16:56] VITALS: BP 100/60
[2020-05-15 20:00] VITALS: BP 127/61
[2020-05-16] VITALS: BP 152/72
[2020-05-16 04:00] VITALS: BP 143/71
--- NOTE | 2020-05-16 06:22 | NUR ---
I have reviewed this patient and I concur with the Shift Assessment completed by the Licensed Practical Nurse today this shift.
[2020-05-16 06:36] LABS: BASOPHILS 0.3 % (0-2); EOSINOPHILS 1.7 % (0-7); HEMATOCRIT 36.4 % (42.0-54.0); HEMOGLOBIN 11.7 g/dL (13.5-17.5); IMMATURE GRANULOCYTES 0.6 % (0-5); LYMPHOCYTE ABS# 1.39 10x3/uL (1.32-3.57); MCH 29.3 pg (26.0-34.0); MCHC 32.1 g/dL (31.0-37.0); MCV 91.2 fL (80.0-100.0); MEAN PLATELET VOLUME 10.3 fL (7.4-10.4); MONOCYTES 14.1 % (2-11); NEUTROPHIL ABS# 7.51 10x3/uL (1.78-5.38); NEUTROPHILS 70.3 % (40-80); PLATELET COUNT 266 10x3/uL (130-400); RBC 3.99 10x6/uL (4.20-6.10); RDW 12.9 % (11.5-14.5); WBC 10.7 10x3/uL (4.8-10.8)
[2020-05-16 06:40] LABS: CALC OSMOLALITY 281 mosm/kg (275-300); CHLORIDE - SERUM 106 mmol/L (98-107); CREATININE - SERUM 0.7 mg/dL (0.6-1.3); GLUCOSE 94 mg/dL (74-106); MAGNESIUM - SERUM 1.9 mg/dL (1.8-2.4); PHOSPHOROUS 2.4 mg/dL (2.5-4.9); SODIUM 138 mmol/L (136-145); UREA NITROGEN 30 mg/dL (7-18); eGFR NON AFRICAN AMERICAN > 90 mL/min (90-120)
[2020-05-16 08:49] VITALS: BP 142/70
[2020-05-16 11:44] VITALS: BP 132/73
--- NOTE | 2020-05-16 12:56 | NUR ---
NT SX LARGE AMOUNTS OF THICK YELLOW SECRETIONS AMY WELL SPO2 93% 4LPM ON DEPARTURE
--- NOTE | 2020-05-16 13:11 | MORECARE ---
CASE MANAGEMENT DISCHARGE SUMMARY PATIENT: TOM SIMS UNIT: [id number] ADM DATE: 05/11/20 AGE: 84 : 35 SEX: M ROOM/BED: D.2220 AUTHOR: RASHAAD,DOC PHYSICIAN: REFERRING PHYSICIAN: DREA CHAO MD DATE OF SERVICE: 05/16/20 Case Management Discharge Planning Summary CT Patient Name: TOM SIMS Attending MD : ALEJANDRA CHAO, Medical Record: [id number] Encounter : [id number] Facility : [address] [place] [address] Admission Date : 115:00 Center Discharge Date : [address] [place] [address] Date of : DC Plan ID : [id number] Age/Sex/Martia : 84/ M/M Printed on : 05/16/20 13:10 CT DCP Review Details Anticipated D/C: Expected LOS : Case Status : INITIATED - Initial Reviewe: [id number] - Umu Lopez Initial Review: 05/11/2020 Planned Disposi: 62 - Discharged/Trans to Rehab Facility Including Distinct Units of a Hospital Final Discharge: - Final Reviewer : : Final Review : DCP Focus Questions & Answers DCP Screen High Risk Factors: Hosp related to CHF, COPD, DM, End Stage Ds, CVA, CA DCP Evaluation Patient's ability to cope with chronic illness d. No chronic illness Would patient like to participate in any Care Not applicable Coordination programs (if applicable): Mental health screen: No mental health history DCP Re-evaluation Would patient like to participate in any Care Not applicable Coordination programs (if applicable): [facility] TOM SIMS MR#: [id number] /Age/Sex/Qxbgkb42-Qbk-26 /84/M /M Attending Physician Name: ZHANNA [id number] Patient Account:[id number] [facility] Page -1 of 1 All edits/amendments must be made on the electronic document DICTATION DATE: 05/16/20 131 LAV CREWMAN: DM 05/16/20 1310 RPT#: [id number] DC DATE: STATUS: ADM IN [facility] [address] [place] [address] END OF REPORT
--- NOTE | 2020-05-16 13:31 | MORECARE ---
CASE MANAGEMENT DISCHARGE SUMMARY PATIENT: TMO SIMS UNIT: [id number] ADM DATE: 05/11/20 AGE: 84 : 35 SEX: M ROOM/BED: D.2220 AUTHOR: RASHAAD,DOC PHYSICIAN: REFERRING PHYSICIAN: DREA CHAO MD DATE OF SERVICE: 05/16/20 Case Management Discharge Planning Summary CT Patient Name: TOM SIMS Attending MD : ALEJANDRA CHAO, Medical Record: [id number] Encounter : [id number] Facility : [address] [place] [address] Admission Date : 115:00 Center Discharge Date : [address] [place] [address] Date of : DC Plan ID : [id number] Age/Sex/Martia : 84/ M/M Printed on : 05/16/20 13:29 CT DCP Review Details Anticipated D/C: Expected LOS : Case Status : INITIATED - Initial Reviewe: [id number] - Umu Lopez Initial Review: 05/11/2020 Planned Disposi: 62 - Discharged/Trans to Rehab Facility Including Distinct Units of a Hospital Final Discharge: - Final Reviewer : : Final Review : Comments CT Entered Date Type Reviewer 05/16/20 13:14 CT Discharge Planning Umu Lopez Comment CM met with patient's son to complete initial dc planning assessment. CM educated patient on the CM role and verbal consent given by patient to complete assessment. Patient's son Tommy ( [phone]) Patient lives at home with his , but was readmitted from Inpatient rehab at [facility]. Most of his information was collected from previous stay. In rehab he was walking 17 feet with rolling walker. At home he was using a walker. Unsure what his DC plan will me. In his current condition he could not go home how he is at this time. CM will continue to follow and will assist as needed with dc plans/needs. DCP Focus Questions & Answers DCP Screen High Risk Factors: Hosp related to CHF, COPD, DM, End Stage Ds, CVA, CA DCP Evaluation Patient's ability to cope with chronic illness a. Adequate (0-3 ED visits in 6 mos., adequate financial resources, attends scheduled appts.) Patient's current cognitive status: *Oriented to person, place, situation, time and present Functional screen assessment: Basic needs can adequately be met by self Family / Caregiver's ability to cope with chronic a. Adequate (ability to meet patient's illness: medical needs, ensures patient attends medical appts.) Physical Status: Total care dependent Physical Status: Speech impaired Physical Status: Mobility impaired Physical Status: Indwelling urinary catheter Physical Status: Incontinent Physical Status: Compromised skin integrity Physical Status: Compromised nutritional status Equipment needed for post hospitalization: Walker - Standard Is there a likelihood that the patient will Yes require additional services to return to the preadmission environment? Living Arrangements: Home with Spouse/Significant Other Partial Dependence, assistance required for: Eating Partial Dependence, assistance required for: Dressing Partial Dependence, assistance required for: Bathing Partial Dependence, assistance required for: Ambulation / Mobility Results of this evaluation have been discussed Children with: Patient with capacity for self-care or can be No cared for in same environment as prior to hospitalization? Baseline cognitive status: *Oriented to person, place, situation, time and present Physical environment modification needed / Yes anticipated for discharge: Medication Management: Patient states they do have transportation to shredder picker medications Medication Management: Patient states can afford medications Medication Management: Patient states they do not have transporation to shredder picker medications Medication Management: Patient states the need for assistance with medication administration Pharmacy name[facility]): [facility] Does Patient have transportation to get home and Yes to follow-up medical appointments when discharged from the hospital? Would patient like to participate in any Care Not applicable Coordination programs (if applicable): Does the patient have electricity at home? Yes Does the patient have running water in their Yes house? Equipment in use: Walker - Standard Mental health screen: No mental health history DCP Re-evaluation Would patient like to participate in any Care Not applicable Coordination programs (if applicable): [facility] TOM SIMS MR#: [id number] /Age/Sex/Cmesyv36-Xvz-07 //M /M Attending Physician Name: Valente [id number] Patient Account:[id number] [facility] Page -1 of 1 All edits/amendments must be made on the electronic document DICTATION DATE: 05/16/20 132 CONSUMER MARKETING ANALYST: FRACISCO 05/16/20 1329 RPT#: [id number] DC DATE: STATUS: ADM IN [place] [id number] [place] [address] END OF REPORT
--- NOTE | 2020-05-16 13:42 | NUR ---
Nutrition Re-Assessment Patient followed by DIRECTOR PHARMACEUTICAL for diet appropriateness. Family is making food request for patient to help him eat more. Diet: Regular Puree with thin liquids PO intake: 0% x last 6 meals ProcalAmine @ 100mL/hr = 588kcal and 70gm protein Last BM: 05/09/20 Wt: 180# (05/12/20) Meds noted: NS@75, abx, megace (started 05/15/20), Magox, probiotics, thiamin, prednisone, MVI Labs noted: PO4 2.4(L) Estimated nutrition needs: -Energy = 0347-2588 (25-30kcal/kg IBW) -Protein = 76-85 (0.8-1gms/kg) -Fluids = 1825-2200mL (or per MD) Nutrition diagnosis: -Inadequate energy intake r/t inadequate oral intake, procalamine only meeting ~32% of energy needs and ~92% protein needs AEB PO intake 0% and current PPN rate. Patient is currently not meeting estimated nutrition needs. Recommendations/Interventions: -PO diet per DIRECTOR PHARMACEUTICAL recommendations. -Food and Nutrition Services will continue to honor food preferences/request to the best of our ability. -Continue Ensure TID/with meals. -Continue PPN as PO intake is inadequate. -Recommend MD/Family consider enteral feeding NGT vs PEG placement. -RD will follow-up 05/18/20.
--- NOTE | 2020-05-16 13:58 | CN ---
PATIENT NAME:TOM SIMS MEDICAL RECORD: [id number] : 35 LOCATION:D.MS Nina2220 ADMIT DATE: 05/11/20 ACCOUNT: [id number] CONSULTING PHYSICIAN: MIKE WALDRON MD REFERRING PHYSICIAN: DREA CHAO MD DATE OF CONSULTATION: 05/15/2020 HISTORY OF PRESENT ILLNESS: An 84-year-old gentleman with a fairly extensive cardiac history, including history of atrial fibrillation, is actually status post a Watchman device placement as well as coronary artery disease with most recent angiography showing patent stents, admitted with metabolic encephalopathy, generalized failure to thrive in an 84-year-old, is noted to have intermittent bursts of atrial fibrillation 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 We are asked to see him concerning his cardiovascular status. PAST MEDICAL HISTORY: Includes; 1. History of renal failure, status post transplantation. 2. Hypertension. 3. Hyperlipidemia. 4. Atrial fibrillation as described above. CURRENT MEDICATIONS: Include Uloric 40 mg p.o. every day, Prilosec 20 mg p.o. every day, cyclosporine 50 b.i.d., Myfortic 720 b.i.d., thiamine 100 mg p.o. every day, folic acid 1 mg p.o. every day, prednisone 5 daily, Pulmicort 0.5 b.i.d., primidone 50 mg p.o. b.i.d., Neurontin 100 p.o. b.i.d., sotalol 80 b.i.d., amlodipine 10 every day, metoprolol 25 b.i.d., Plavix 75 every day. ALLERGIES: ASPIRIN. SOCIAL HISTORY: Nonsmoker, nondrinker. Previously in rehab for strengthening. REVIEW OF SYSTEMS: The patient reports easy bruising but reports no swollen glands. The patient reports no fever, no night sweats, no significant weight gain, no significant weight loss. No significant exercise tolerance. The patient reports no dry eyes, no irritation, no vision change. Patient reports no difficulty hearing and no ear pain. Patient reports no frequent nose bleeds or nose and sinus problems. Patient reports on arm pain on exertion. No shortness of breath while lying down. No history of heart murmur. Patient reports no cough, no wheezing or coughing up blood. Patient reports no abdominal pain, no vomiting. Normal appetite. No diarrhea and not vomiting blood. No nausea and no constipation. Patient reports no incontinence. No difficulty urinating. No hematuria. No increased frequency. Patient reports no muscle aches. No weakness, no arthralgias, no back pain. No swelling of the extremities. Patient reports no abnormal mole, no jaundice, no rashes. Reports no loss of consciousness. No weakness and no numbness. No seizures, dizziness, or headaches. The patient reports no depression, no sleep disturbance, feeling safe in a relationship and no alcohol abuse. Patient reports on fatigue. Reports no runny nose or sinus pressure. No itching, no hives, and no frequent sneezing. PHYSICAL EXAMINATION: GENERAL: A somewhat chronically appearing ill, no acute distress. VITAL SIGNS: Blood pressure 140/65, pulse 71 and regular. HEENT: Normocephalic, atraumatic. CONSULT REPORT [id number] TOM SIMS NECK: No bruits are noted. HEART: Regular, II/ systolic ejection murmur. LUNGS: Fair excursion. ABDOMEN: Soft, nontender. EXTREMITIES: Pulses 1+. There is no edema. IMPRESSION AND PLAN: Intermittent atrial fibrillation including Blake's phenomena. The patient already with Watchman, so anticoagulation not an issue at this point. He is maintaining sinus rhythm for the most part, would not more aggressively treat his atrial arrhythmias until these become more sustained. Thank you for the consultation. TRANSINT:[id number] Voice Confirmation ID: [id number] DOCUMENT ID: [id number] MIKE WALDRON MD at 1358 CC: [id number] DICTATION DATE: 05/15/20 1154 IMPROVEMENT SPEC: 05/15/20 1450 ADM IN [place] [id number] [place] [address]
[2020-05-16 16:52] VITALS: BP 138/61
[2020-05-16 20:00] VITALS: BP 136/58
--- NOTE | 2020-05-16 20:47 | NUR ---
0700 BEDSIDE REPORT RECEIVED INTODUCED MYSELF TO PATIENT AND FAMILY ASKED FAMILY IF THEY WERE OK TO HAVE A GRANITE WORKER WORKING WITH PATIENT TODAY AND 2 FAMILY GAVE PERMISION
--- NOTE | 2020-05-16 20:50 | NUR ---
0900 RT NEAL PRESENT PERFORMING DEEP SUCTIION WITH COPIOUS AMOUNTS THICK FERRELL SPUTUM NOTED ON RETURN
--- NOTE | 2020-05-16 20:51 | NUR ---
1030 FAMILY CHANGED THEIR MINDS ABOUT HAVING STUDENT NURSE PRESENT INFORMED INSTRUCTOR STUDENT ASSIGNED ANOTHER PATIENT
[2020-05-17] VITALS: BP 135/57
[2020-05-17 04:00] VITALS: BP 144/74
--- NOTE | 2020-05-17 06:47 | NUR ---
I have reviewed this patient and I concur with the Shift Assessment completed by the Licensed Practical Nurse today this shift.
[2020-05-17 06:51] LABS: BASOPHILS 0.5 % (0-2); HEMATOCRIT 37.7 % (42.0-54.0); HEMOGLOBIN 12.3 g/dL (13.5-17.5); IMMATURE GRANULOCYTES 0.6 % (0-5); LYMPHOCYTE ABS# 1.31 10x3/uL (1.32-3.57); LYMPHOCYTES 13.6 % (15-50); MCH 29.4 pg (26.0-34.0); MCHC 32.6 g/dL (31.0-37.0); MCV 90.2 fL (80.0-100.0); MEAN PLATELET VOLUME 10.1 fL (7.4-10.4); MONOCYTES 13.6 % (2-11); NEUTROPHIL ABS# 6.77 10x3/uL (1.78-5.38); NEUTROPHILS 70.7 % (40-80); PLATELET COUNT 299 10x3/uL (130-400); RBC 4.18 10x6/uL (4.20-6.10); WBC 9.6 10x3/uL (4.8-10.8)
[2020-05-17 07:33] LABS: CALC OSMOLALITY 277 mosm/kg (275-300); CARBON DIOXIDE 21.8 mmol/L (21.0-32.0); CHLORIDE - SERUM 106 mmol/L (98-107); CREATININE - SERUM 0.6 mg/dL (0.6-1.3); GLUCOSE 104 mg/dL (74-106); MAGNESIUM - SERUM 1.8 mg/dL (1.8-2.4); POTASSIUM - SERUM 4.3 mmol/L (3.5-5.1); SODIUM 137 mmol/L (136-145); UREA NITROGEN 25 mg/dL (7-18); eGFR NON AFRICAN AMERICAN > 90 mL/min (90-120)
[2020-05-17 07:34] LABS: PHOSPHOROUS 3.2 mg/dL (2.5-4.9)
[2020-05-17 08:36] VITALS: BP 165/66
[2020-05-17 12:01] VITALS: BP 130/72
--- NOTE | 2020-05-17 13:19 | MORECARE ---
CASE MANAGEMENT DISCHARGE SUMMARY PATIENT: TOM SIMS UNIT: [id number] ADM DATE: 05/11/20 AGE: 84 : 35 SEX: M ROOM/BED: D.2220 AUTHOR: RASHAAD,DOC PHYSICIAN: REFERRING PHYSICIAN: DREA CHAO MD DATE OF SERVICE: 05/17/20 Case Management Discharge Planning Summary CT Patient Name: TOM SIMS Attending MD : ALEJANDRA CHAO, Medical Record: [id number] Encounter : [id number] Facility : [address] [place] [address] Admission Date : 115:00 Center Discharge Date : [address] [place] [address] Date of : DC Plan ID : [id number] Age/Sex/Martia : 84/ M/M Printed on : 05/17/20 13:18 CT DCP Review Details Anticipated D/C: Expected LOS : Case Status : INITIATED - Initial Reviewe: [id number] - Umu Lopez Initial Review: 05/11/2020 Planned Disposi: 62 - Discharged/Trans to Rehab Facility Including Distinct Units of a Hospital Final Discharge: - Final Reviewer : : Final Review : Comments CT Entered Date Type Reviewer 05/17/20 13:13 CT Discharge Planning Umu Lopez Comment CM met with son and about Hospice and their options. They would like to use [facility] at [facility]. I have received the [facility] and spoke with Constanza. She will be sending a nurse over to speak with them. CM to follow and assist as needed 05/16/20 13:14 CT Discharge Planning Umu Lopez Comment CM met with patient's son to complete initial dc planning assessment. CM educated patient on the CM role and verbal consent given by patient to complete assessment. Patient's son Tommy ) Patient lives at home with his , but was readmitted from Inpatient rehab at [facility]. Most of his information was collected from previous stay. In rehab he was walking 17 feet with rolling walker. At home he was using a walker. Unsure what his DC plan will me. In his current condition he could not go home how he is at this time. CM will continue to follow and will assist as needed with dc plans/needs. DCP Focus Questions & Answers DCP Screen High Risk Factors: Hosp related to CHF, COPD, DM, End Stage Ds, CVA, CA DCP Evaluation Patient's ability to cope with chronic illness a. Adequate (0-3 ED visits in 6 mos., adequate financial resources, attends scheduled appts.) Patient's current cognitive status: *Oriented to person, place, situation, time and present Functional screen assessment: Basic needs can adequately be met by self Family / Caregiver's ability to cope with chronic a. Adequate (ability to meet patient's illness: medical needs, ensures patient attends medical appts.) Physical Status: Total care dependent Physical Status: Speech impaired Physical Status: Mobility impaired Physical Status: Indwelling urinary catheter Physical Status: Incontinent Physical Status: Compromised skin integrity Physical Status: Compromised nutritional status Equipment needed for post hospitalization: Walker - Standard Is there a likelihood that the patient will Yes require additional services to return to the preadmission environment? Living Arrangements: Home with Spouse/Significant Other Partial Dependence, assistance required for: Eating Partial Dependence, assistance required for: Dressing Partial Dependence, assistance required for: Bathing Partial Dependence, assistance required for: Ambulation / Mobility Results of this evaluation have been discussed Children with: Patient with capacity for self-care or can be No cared for in same environment as prior to hospitalization? Baseline cognitive status: *Oriented to person, place, situation, time and present Physical environment modification needed / Yes anticipated for discharge: Medication Management: Patient states they do have transportation to cook pickled meat medications Medication Management: Patient states can afford medications Medication Management: Patient states they do not have transporation to cook pickled meat medications Medication Management: Patient states the need for assistance with medication administration Pharmacy name([facility]): [facility] Does Patient have transportation to get home and Yes to follow-up medical appointments when discharged from the hospital? Would patient like to participate in any Care Not applicable Coordination programs (if applicable): Does the patient have electricity at home? Yes Does the patient have running water in their Yes house? Equipment in use: Walker - Standard Mental health screen: No mental health history DCP Re-evaluation Would patient like to participate in any Care Not applicable Coordination programs (if applicable): [facility] TOM SIMS MR#: [id number] /Age/Sex/Rvyrxm77-Rkr-80 /84/M /M Attending Physician Name: Valente [id number] Patient Account:[id number] [facility] Page -1 of 1 All edits/amendments must be made on the electronic document DICTATION DATE: 05/17/201317 SOUND ASSISTANT: FRACISCO 05/17/201317 RPT#: [id number] DC DATE: STATUS: ADM IN [facility] [address] [place] [address] END OF REPORT
--- NOTE | 2020-05-17 13:42 | MORECARE ---
CASE MANAGEMENT DISCHARGE SUMMARY PATIENT: TOM SIMS UNIT: [id number] ADM DATE: 05/11/20 AGE: 84 : 35 SEX: M ROOM/BED: D.2220 AUTHOR: RASHAAD,DOC PHYSICIAN: REFERRING PHYSICIAN: DREA CHAO MD DATE OF SERVICE: 05/17/20 Case Management Discharge Planning Summary CT Patient Name: TOM SIMS Attending MD : ALEJANDRA CHAO, Medical Record: [id number] Encounter : [id number] Facility : [address] [place] [address] Admission Date : 115:00 Center Discharge Date : [address] [place] [address] Date of : DC Plan ID : [id number] Age/Sex/Martia : 84/ M/M Printed on : 05/17/20 13:41 CT DCP Review Details Anticipated D/C: Expected LOS : Case Status : INITIATED - Initial Reviewe: [id number] - Umu Lopez Initial Review: 05/11/2020 Planned Disposi: 62 - Discharged/Trans to Rehab Facility Including Distinct Units of a Hospital Final Discharge: - Final Reviewer : : Final Review : Comments CT Entered Date Type Reviewer 05/17/20 13:37 CT Discharge Planning Umu Lopez Comment ZOHAIB WITH [facility] HERE TO MEET WITH FAMILY 05/17/20 13:13 CT Discharge Planning Umu Lopez Comment CM met with son and about Hospice and their options. They would like to use [facility] GIP over at [facility]. I have received the [facility] and spoke with Constanza. She will be sending a nurse over to speak with them. CM to follow and assist as needed 05/16/20 13:14 CT Discharge Planning Umu Lopez Comment CM met with patient's son to complete initial dc planning assessment. CM educated patient on the CM role and verbal consent given by patient to complete assessment. Patient's son Tommy ) Patient lives at home with his , but was readmitted from Inpatient rehab at [facility]. Most of his information was collected from previous stay. In rehab he was walking 17 feet with rolling walker. At home he was using a walker. Unsure what his DC plan will me. In his current condition he could not go home how he is at this time. CM will continue to follow and will assist as needed with dc plans/needs. DCP Focus Questions & Answers DCP Screen High Risk Factors: Hosp related to CHF, COPD, DM, End Stage Ds, CVA, CA DCP Evaluation Patient's ability to cope with chronic illness a. Adequate (0-3 ED visits in 6 mos., adequate financial resources, attends scheduled appts.) Patient's current cognitive status: *Oriented to person, place, situation, time and present Functional screen assessment: Basic needs can adequately be met by self Family / Caregiver's ability to cope with chronic a. Adequate (ability to meet patient's illness: medical needs, ensures patient attends medical appts.) Physical Status: Total care dependent Physical Status: Speech impaired Physical Status: Mobility impaired Physical Status: Indwelling urinary catheter Physical Status: Incontinent Physical Status: Compromised skin integrity Physical Status: Compromised nutritional status Equipment needed for post hospitalization: Walker - Standard Is there a likelihood that the patient will Yes require additional services to return to the preadmission environment? Living Arrangements: Home with Spouse/Significant Other Partial Dependence, assistance required for: Eating Partial Dependence, assistance required for: Dressing Partial Dependence, assistance required for: Bathing Partial Dependence, assistance required for: Ambulation / Mobility Results of this evaluation have been discussed Children with: Patient with capacity for self-care or can be No cared for in same environment as prior to hospitalization? Baseline cognitive status: *Oriented to person, place, situation, time and present Physical environment modification needed / Yes anticipated for discharge: Medication Management: Patient states they do have transportation to picker packer medications Medication Management: Patient states can afford medications Medication Management: Patient states they do not have transporation to picker packer medications Medication Management: Patient states the need for assistance with medication administration Pharmacy name([facility]): [facility] Does Patient have transportation to get home and Yes to follow-up medical appointments when discharged from the hospital? Would patient like to participate in any Care Not applicable Coordination programs (if applicable): Does the patient have electricity at home? Yes Does the patient have running water in their Yes house? Equipment in use: Walker - Standard Mental health screen: No mental health history DCP Re-evaluation Would patient like to participate in any Care Not applicable Coordination programs (if applicable): [facility] TOM SIMS MR#: [id number] /Age/Sex/Aiioxr93-Uuv-21 //M /M Attending Physician Name: ZHANNA, [id number] Patient Account:[id number] [facility] Page -1 of 1 All edits/amendments must be made on the electronic document DICTATION DATE: 05/17/201340 SPRING INTERNSHIP: FRACISCO 05/17/20 134 RPT#: [id number] DC DATE: STATUS: ADM IN [facility] [address] [place] [address] END OF REPORT
[2020-05-17 17:05] VITALS: BP 124/74
--- NOTE | 2020-05-17 18:22 | MORECARE ---
CASE MANAGEMENT DISCHARGE SUMMARY PATIENT: TOM SIMS UNIT: [id number] ADM DATE: 05/11/20 AGE: 84 : 35 SEX: M ROOM/BED: D.2220 AUTHOR: RASHAAD,DOC PHYSICIAN: REFERRING PHYSICIAN: DREA CHAO MD DATE OF SERVICE: 05/17/20 Case Management Discharge Planning Summary CT Patient Name: TOM SIMS Attending MD : ALEJANDRA CHAO, Medical Record: [id number] Encounter : [id number] Facility : [address] [place] [address] Admission Date : 115:00 Center Discharge Date : [address] [place] [address] Date of : DC Plan ID : [id number] Age/Sex/Martia : 84/ M/M Printed on : 05/17/20 18:21 CT DCP Review Details Anticipated D/C: Expected LOS : Case Status : INITIATED - Initial Reviewe: [id number] - Umu Lopez Initial Review: 05/11/2020 Planned Disposi: 62 - Discharged/Trans to Rehab Facility Including Distinct Units of a Hospital Final Discharge: - Final Reviewer : : Final Review : Comments CT Entered Date Type Reviewer 05/17/20 18:10 CT Discharge Planning Umu Lopez Comment ZOHAIB WITH [facility] MET PATIENT'S FAMILY AND DISCUSSED SERVICES. CM CONTINUE TO FOLLOW AND ASSIST NEEDED 05/17/20 13:37 CT Discharge Planning Umu Lopez Comment ZOHAIB WITH [facility] HERE TO MEET WITH FAMILY 05/17/20 13:13 CT Discharge Planning Umu Lopez Comment CM met with son and about Hospice and their options. They would like to use [facility] GIP over at [facility]. I have received the [facility] and spoke with Constanza. She will be sending a nurse over to speak with them. CM to follow and assist as needed 05/16/20 13:14 CT Discharge Planning Umu Lopez Comment CM met with patient's son to complete initial dc planning assessment. CM educated patient on the CM role and verbal consent given by patient to complete assessment. Patient's son Tommy ) Patient lives at home with his , but was readmitted from Inpatient rehab at [facility]. Most of his information was collected from previous stay. In rehab he was walking 17 feet with rolling walker. At home he was using a walker. Unsure what his DC plan will me. In his current condition he could not go home how he is at this time. CM will continue to follow and will assist as needed with dc plans/needs. DCP Focus Questions & Answers DCP Screen High Risk Factors: Hosp related to CHF, COPD, DM, End Stage Ds, CVA, CA DCP Evaluation Patient's ability to cope with chronic illness a. Adequate (0-3 ED visits in 6 mos., adequate financial resources, attends scheduled appts.) Patient's current cognitive status: *Oriented to person, place, situation, time and present Functional screen assessment: Basic needs can adequately be met by self Family / Caregiver's ability to cope with chronic a. Adequate (ability to meet patient's illness: medical needs, ensures patient attends medical appts.) Physical Status: Total care dependent Physical Status: Speech impaired Physical Status: Mobility impaired Physical Status: Indwelling urinary catheter Physical Status: Incontinent Physical Status: Compromised skin integrity Physical Status: Compromised nutritional status Equipment needed for post hospitalization: Walker - Standard Is there a likelihood that the patient will Yes require additional services to return to the preadmission environment? Living Arrangements: Home with Spouse/Significant Other Partial Dependence, assistance required for: Eating Partial Dependence, assistance required for: Dressing Partial Dependence, assistance required for: Bathing Partial Dependence, assistance required for: Ambulation / Mobility Results of this evaluation have been discussed Children with: Patient with capacity for self-care or can be No cared for in same environment as prior to hospitalization? Baseline cognitive status: *Oriented to person, place, situation, time and present Physical environment modification needed / Yes anticipated for discharge: Medication Management: Patient states they do have transportation to pharmacy picking tech medications Medication Management: Patient states can afford medications Medication Management: Patient states they do not have transporation to pharmacy picking tech medications Medication Management: Patient states the need for assistance with medication administration Pharmacy name([facility]): [facility] Does Patient have transportation to get home and Yes to follow-up medical appointments when discharged from the hospital? Would patient like to participate in any Care Not applicable Coordination programs (if applicable): Does the patient have electricity at home? Yes Does the patient have running water in their Yes house? Equipment in use: Walker - Standard Mental health screen: No mental health history DCP Re-evaluation Would patient like to participate in any Care Not applicable Coordination programs (if applicable): [facility] TOM SIMS MR#: [id number] /Age/Sex/Ufyzdq57-Lbj-19 /84/M /M Attending Physician Name: ZHANNA [id number] Patient Account:[id number] [facility] Page -1 of 1 All edits/amendments must be made on the electronic document DICTATION DATE: 05/17/201820 RACK CLEANER: FRACISCO 05/17/201820 RPT#: [id number] DC DATE: STATUS: ADM IN [address] [place] [address] END OF REPORT
[2020-05-17 20:00] VITALS: BP 129/66
[2020-05-18] VITALS: BP 151/65
[2020-05-18 04:00] VITALS: BP 140/68; BP 151/65
--- NOTE | 2020-05-18 06:39 | NUR ---
I have reviewed this patient and I concur with the Shift Assessment completed by the Licensed Practical Nurse today this shift.
[2020-05-18 06:54] LABS: BASOPHILS 0.9 % (0-2); EOSINOPHILS 1.6 % (0-7); HEMATOCRIT 36.5 % (42.0-54.0); HEMOGLOBIN 11.5 g/dL (13.5-17.5); IMMATURE GRANULOCYTES 0.8 % (0-5); LYMPHOCYTE ABS# 1.42 10x3/uL (1.32-3.57); LYMPHOCYTES 17.8 % (15-50); MCHC 31.5 g/dL (31.0-37.0); MCV 91.9 fL (80.0-100.0); MEAN PLATELET VOLUME 10.8 fL (7.4-10.4); MONOCYTES 15.4 % (2-11); NEUTROPHIL ABS# 5.09 10x3/uL (1.78-5.38); NEUTROPHILS 63.5 % (40-80); PLATELET COUNT 313 10x3/uL (130-400); RBC 3.97 10x6/uL (4.20-6.10)
[2020-05-18 07:15] LABS: ALBUMIN 1.9 g/dL (3.4-5.0); ALKALINE PHOSPHATASE 178 U/L (30-120); ALT (SGPT) 66 U/L (10-68); BILIRUBIN - TOTAL 0.68 mg/dL (0.2-1.3); CALC OSMOLALITY 275 mosm/kg (275-300); CALCIUM 9.2 mg/dL (8.5-10.1); CARBON DIOXIDE 22.2 mmol/L (21.0-32.0); CHLORIDE - SERUM 103 mmol/L (98-107); CREATININE - SERUM 0.7 mg/dL (0.6-1.3); GLUCOSE 101 mg/dL (74-106); MAGNESIUM - SERUM 1.9 mg/dL (1.8-2.4); POTASSIUM - SERUM 4.3 mmol/L (3.5-5.1); SODIUM 136 mmol/L (136-145); UREA NITROGEN 25 mg/dL (7-18); eGFR NON AFRICAN AMERICAN > 90 mL/min (90-120)
[2020-05-18] MEDS ORDERED: MAXIPIME 1 GM/D51 G1 IV (08:48)
[2020-05-18] MEDS ORDERED: LOPRESSOR I5 MG/5 ML IV (08:48)
[2020-05-18] MEDS ORDERED: VANCOMYCIN 1 GM/1 G1 IV (08:48)
[2020-05-18] MEDS ORDERED: NORVASC10 MG PO (08:49)
--- NOTE | 2020-05-18 08:53 | NUR ---
REPORT TO [facility]
--- NOTE | 2020-05-18 09:32 | NUR ---
ASSESSMENT PER FLOW SHEET. PATIENT IS WITHOUT DISTRESS. MONITOR FOR NEEDS. FAMILY AT BEDSIDE
--- NOTE | 2020-05-18 09:57 | NUR ---
LEFT UNIT WITH [facility] STAFF FOR TRANSPORT TO [facility]
--- NOTE | 2020-05-18 10:13 | MORECARE ---
CASE MANAGEMENT DISCHARGE SUMMARY PATIENT: TOM SIMS UNIT: [id number] ADM DATE: 05/11/20 AGE: 84 : 35 SEX: M ROOM/BED: D.2220 AUTHOR: RASHAAD,DOC PHYSICIAN: REFERRING PHYSICIAN: DREA CHAO MD DATE OF SERVICE: 05/18/20 Case Management Discharge Planning Summary CT Patient Name: TOM SIMS Attending MD : ALEJANDRA CHAO, Medical Record: [id number] Encounter : [id number] Facility : [address] [place] [address] Medical Admission Date : 115:00 Center Discharge Date : 05/18/[address] [place] [address] Date of : DC Plan ID : [id number] Age/Sex/Martia : 84/ M/M Printed on : 05/18/20 10:11 CT DCP Review Details Anticipated D/C: Expected LOS : Case Status : INITIATED - Initial Reviewe: [id number] - Umu Lopez Initial Review: 05/11/2020 Planned Disposi: 62 - Discharged/Trans to Rehab Facility Including Distinct Units of a Hospital Final Discharge: - Final Reviewer : : Final Review : Comments CT Entered Date Type Reviewer 05/17/20 18:10 CT Discharge Planning Umu Lopez Comment ZOHAIB WITH [facility] MET PATIENT'S FAMILY AND DISCUSSED SERVICES. CM CONTINUE TO FOLLOW AND ASSIST NEEDED 05/17/20 13:37 CT Discharge Planning Umu Lopez Comment ZOHAIB WITH [facility] HERE TO MEET WITH FAMILY 05/17/20 13:13 CT Discharge Planning Umu Lopez Comment CM met with son and about Hospice and their options. They would like to use [facility] GIP over at [facility]. I have received the [facility] and spoke with Constanza. She will be sending a nurse over to speak with them. CM to follow and assist as needed 05/16/20 13:14 CT Discharge Planning Umu Lopez Comment CM met with patient's son to complete initial dc planning assessment. CM educated patient on the CM role and verbal consent given by patient to complete assessment. Patient's son Tommy ) Patient lives at home with his , but was readmitted from Inpatient rehab at [facility]. Most of his information was collected from previous stay. In rehab he was walking 17 feet with rolling walker. At home he was using a walker. Unsure what his DC plan will me. In his current condition he could not go home how he is at this time. CM will continue to follow and will assist as needed with dc plans/needs. DCP Focus Questions & Answers DCP Screen High Risk Factors: Hosp related to CHF, COPD, DM, End Stage Ds, CVA, CA DCP Evaluation Patient's ability to cope with chronic illness a. Adequate (0-3 ED visits in 6 mos., adequate financial resources, attends scheduled appts.) Patient's current cognitive status: *Oriented to person, place, situation, time and present Functional screen assessment: Basic needs can adequately be met by self Family / Caregiver's ability to cope with chronic a. Adequate (ability to meet patient's illness: medical needs, ensures patient attends medical appts.) Physical Status: Total care dependent Physical Status: Speech impaired Physical Status: Mobility impaired Physical Status: Indwelling urinary catheter Physical Status: Incontinent Physical Status: Compromised skin integrity Physical Status: Compromised nutritional status Equipment needed for post hospitalization: Walker - Standard Is there a likelihood that the patient will Yes require additional services to return to the preadmission environment? Living Arrangements: Home with Spouse/Significant Other Partial Dependence, assistance required for: Eating Partial Dependence, assistance required for: Dressing Partial Dependence, assistance required for: Bathing Partial Dependence, assistance required for: Ambulation / Mobility Results of this evaluation have been discussed Children with: Patient with capacity for self-care or can be No cared for in same environment as prior to hospitalization? Baseline cognitive status: *Oriented to person, place, situation, time and present Physical environment modification needed / Yes anticipated for discharge: Medication Management: Patient states they do have transportation to pick up driver medications Medication Management: Patient states can afford medications Medication Management: Patient states they do not have transporation to pick up driver medications Medication Management: Patient states the need for assistance with medication administration Pharmacy name([facility]): [facility] Does Patient have transportation to get home and Yes to follow-up medical appointments when discharged from the hospital? Would patient like to participate in any Care Not applicable Coordination programs (if applicable): Does the patient have electricity at home? Yes Does the patient have running water in their Yes house? Equipment in use: Walker - Standard Mental health screen: No mental health history DCP Re-evaluation Would patient like to participate in any Care Not applicable Coordination programs (if applicable): [facility] TOM SIMS MR#: [id number] /Age/Sex/Uywlls91-Vdt-65 /84/M /M Attending Physician Name: ZHANNA [id number] Patient Account:[id number] [facility] Page -1 of 1 All edits/amendments must be made on the electronic document DICTATION DATE: 05/18/20 1011 OVERHEAD DISTRIBUTION ENGINEER: FRACISCO 05/18/20 1011 RPT#: [id number] DC DATE:05/18/20 STATUS: DIS IN [facility] [address] [place] [address] END OF REPORT
--- NOTE | 2020-05-18 13:09 | MORECARE ---
CASE MANAGEMENT DISCHARGE SUMMARY PATIENT: TOM SIMS UNIT: [id number] ADM DATE: 05/11/20 AGE: 84 : 35 SEX: M ROOM/BED: D.2220 AUTHOR: RASHAAD,DOC PHYSICIAN: REFERRING PHYSICIAN: DREA CHAO MD DATE OF SERVICE: 05/18/20 Case Management Discharge Planning Summary CT Patient Name: TOM SIMS Attending MD : ALEJANDRA CHAO, Medical Record: [id number] Encounter : [id number] Facility : [address] [place] [address] Medical Admission Date : 115:00 Center Discharge Date : 05/18/[address] [place] [address] Date of : DC Plan ID : [id number] Age/Sex/Martia : 84/ M/M Printed on : 05/18/20 13:08 CT DCP Review Details Anticipated D/C: Expected LOS : Case Status : INITIATED - Initial Reviewe: [id number] - Umu Lopez Initial Review: 05/11/2020 Planned Disposi: 62 - Discharged/Trans to Rehab Facility Including Distinct Units of a Hospital Final Discharge: - Final Reviewer : : Final Review : Comments CT Entered Date Type Reviewer 05/18/20 12:49 CT Discharge Planning Umu Lopez Comment LATE ENTRY RECEIVED A CALL FROM PATIENT'S SON STATED THAT THEY WOULD LIKE HIS DAD TO GO TO INPATIENT HOSPICE AT [facility] NOW. I CALLED [facility] TO LET THEM KNOW. THEY HAVE ALREADY ACCEPTED HIM. PATIENT DC TO [facility] GIP AT [facility] VIA EMS 05/17/20 18:10 CT Discharge Planning Umu Lopez Comment ZOHAIB WITH [facility] MET PATIENT'S FAMILY AND DISCUSSED SERVICES. CM CONTINUE TO FOLLOW AND ASSIST NEEDED 05/17/20 13:37 CT Discharge Planning Umu Lopez Comment ZOHAIB WITH [facility] HERE TO MEET WITH FAMILY 05/17/20 13:13 CT Discharge Planning Umu Lopez Comment CM met with son and about Hospice and their options. They would like to use [facility] GIP over at [facility]. I have received the [facility] and spoke with Constanza. She will be sending a nurse over to speak with them. CM to follow and assist as needed 3/30/21 13:14 CT Discharge Planning Umu Morton CM met with patient's son to complete initial dc planning assessment. CM educated patient on the CM role and verbal consent given by patient to complete assessment. Patient's son Tommy ( [phone]) Patient lives at home with his , but was readmitted from Inpatient rehab at [facility]. Most of his information was collected from previous stay. In rehab he was walking 17 feet with rolling walker. At home he was using a walker. Unsure what his DC plan will me. In his current condition he could not go home how he is at this time. CM will continue to follow and will assist as needed with dc plans/needs. DCP Focus Questions & Answers DCP Screen High Risk Factors: Hosp related to CHF, COPD, DM, End Stage Ds, CVA, CA DCP Evaluation Patient's ability to cope with chronic illness a. Adequate (0-3 ED visits in 6 mos., adequate financial resources, attends scheduled appts.) Patient's current cognitive status: *Oriented to person, place, situation, time and present Functional screen assessment: Basic needs can adequately be met by self Family / Caregiver's ability to cope with chronic a. Adequate (ability to meet patient's illness: medical needs, ensures patient attends medical appts.) Physical Status: Total care dependent Physical Status: Speech impaired Physical Status: Mobility impaired Physical Status: Indwelling urinary catheter Physical Status: Incontinent Physical Status: Compromised skin integrity Physical Status: Compromised nutritional status Equipment needed for post hospitalization: Walker - Standard Is there a likelihood that the patient will Yes require additional services to return to the preadmission environment? Living Arrangements: Home with Spouse/Significant Other Partial Dependence, assistance required for: Eating Partial Dependence, assistance required for: Dressing Partial Dependence, assistance required for: Bathing Partial Dependence, assistance required for: Ambulation / Mobility Results of this evaluation have been discussed Children with: Patient with capacity for self-care or can be No cared for in same environment as prior to hospitalization? Baseline cognitive status: *Oriented to person, place, situation, time and present Physical environment modification needed / Yes anticipated for discharge: Medication Management: Patient states they do have transportation to curing pickling packer medications Medication Management: Patient states can afford medications Medication Management: Patient states they do not have transporation to curing pickling packer medications Medication Management: Patient states the need for assistance with medication administration Pharmacy name([facility]): [facility] Does Patient have transportation to get home and Yes to follow-up medical appointments when discharged from the hospital? Would patient like to participate in any Care Not applicable Coordination programs (if applicable): Does the patient have electricity at home? Yes Does the patient have running water in their Yes house? Equipment in use: Walker - Standard Mental health screen: No mental health history DCP Re-evaluation Would patient like to participate in any Care Not applicable Coordination programs (if applicable): [facility] TOM SIMS MR#: [id number] /Age/Sex/Ayolox49-Twj-44 //M /M Attending Physician Name: ZHANNA [id number] Patient Account:[id number] [facility] Page -1 of 1 All edits/amendments must be made on the electronic document DICTATION DATE: 05/18/208 AOC DIRECTOR COMBAT OPERATIONS OFFICER: FRACISCO 05/18/20 1308 RPT#: [id number] DC DATE:05/18/20 STATUS: DIS IN [facility] [address] [place] [address] END OF REPORT
--- NOTE | 2020-05-19 15:10 | MORECARE ---
CASE MANAGEMENT DISCHARGE SUMMARY PATIENT: TOM SIMS UNIT: [id number] ADM DATE: 05/11/20 AGE: 84 : 35 SEX: M ROOM/BED: D.2220 AUTHOR: RASHAAD,DOC PHYSICIAN: REFERRING PHYSICIAN: DREA CHAO MD DATE OF SERVICE: 05/19/20 Case Management Discharge Planning Summary CT Patient Name: TOM SIMS Attending MD : ALEJANDRA CHAO, Medical Record: [id number] Encounter : [id number] Facility : [address] [place] [address] Medical Admission Date : 115:00 Center Discharge Date : 05/18/[address] [place] [address] Date of : DC Plan ID : [id number] Age/Sex/Martia : 84/ M/M Printed on : 05/19/20 15:09 CT DCP Review Details Anticipated D/C: Expected LOS : Case Status : INITIATED - Initial Reviewe: [id number] - Umu Lopez Initial Review: 05/11/2020 Planned Disposi: 62 - Discharged/Trans to Rehab Facility Including Distinct Units of a Hospital Final Discharge: - Final Reviewer : : Final Review : Comments CT Entered Date Type Reviewer 05/18/20 12:49 CT Discharge Planning Umu Lopez Comment LATE ENTRY RECEIVED A CALL FROM PATIENT'S SON STATED THAT THEY WOULD LIKE HIS DAD TO GO TO INPATIENT HOSPICE AT [facility] NOW. I CALLED [facility] TO LET THEM KNOW. THEY HAVE ALREADY ACCEPTED HIM. PATIENT DC TO [facility] AT [facility] VIA EMS 05/17/20 18:10 CT Discharge Planning Umu Lopez Comment [facility]OHAIB WITH [facility] MET PATIENT'S FAMILY AND DISCUSSED SERVICES. CM CONTINUE TO FOLLOW AND ASSIST NEEDED 05/17/20 13:37 CT Discharge Planning Umu Lopez Comment [facility]OHA[facility] WITH [facility] HERE TO MEET WITH FAMILY 05/17/20 13:13 CT Discharge Planning Umu Lopez Comment CM met with son and about Hospice and their options. They would like to use [facility] over at [facility]. I have received the [facility] and spoke with Constanza. She will be sending a nurse over to speak with them. CM to follow and assist as needed 3/30/21 13:14 CT Discharge Planning Umu Morton CM met with patient's son to complete initial dc planning assessment. CM educated patient on the CM role and verbal consent given by patient to complete assessment. Patient's son Tommy ) Patient lives at home with his , but was readmitted from Inpatient rehab at [facility]. Most of his information was collected from previous stay. In rehab he was walking 17 feet with rolling walker. At home he was using a walker. Unsure what his DC plan will me. In his current condition he could not go home how he is at this time. CM will continue to follow and will assist as needed with dc plans/needs. DCP Focus Questions & Answers DCP Screen High Risk Factors: Hosp related to CHF, COPD, DM, End Stage Ds, CVA, CA DCP Evaluation Patient's ability to cope with chronic illness a. Adequate (0-3 ED visits in 6 mos., adequate financial resources, attends scheduled appts.) Patient's current cognitive status: *Oriented to person, place, situation, time and present Functional screen assessment: Basic needs can adequately be met by self Family / Caregiver's ability to cope with chronic a. Adequate (ability to meet patient's illness: medical needs, ensures patient attends medical appts.) Physical Status: Total care dependent Physical Status: Speech impaired Physical Status: Mobility impaired Physical Status: Indwelling urinary catheter Physical Status: Incontinent Physical Status: Compromised skin integrity Physical Status: Compromised nutritional status Equipment needed for post hospitalization: Walker - Standard Is there a likelihood that the patient will Yes require additional services to return to the preadmission environment? Living Arrangements: Home with Spouse/Significant Other Partial Dependence, assistance required for: Eating Partial Dependence, assistance required for: Dressing Partial Dependence, assistance required for: Bathing Partial Dependence, assistance required for: Ambulation / Mobility Results of this evaluation have been discussed Children with: Patient with capacity for self-care or can be No cared for in same environment as prior to hospitalization? Baseline cognitive status: *Oriented to person, place, situation, time and present Physical environment modification needed / Yes anticipated for discharge: Medication Management: Patient states they do have transportation to fruit or nut picker medications Medication Management: Patient states can afford medications Medication Management: Patient states they do not have transporation to fruit or nut picker medications Medication Management: Patient states the need for assistance with medication administration Pharmacy name([facility]): [facility] Does Patient have transportation to get home and Yes to follow-up medical appointments when discharged from the hospital? Would patient like to participate in any Care Not applicable Coordination programs (if applicable): Does the patient have electricity at home? Yes Does the patient have running water in their Yes house? Equipment in use: Walker - Standard Mental health screen: No mental health history DCP Re-evaluation Would patient like to participate in any Care Not applicable Coordination programs (if applicable): [facility] TOM SIMS MR#: [id number] /Age/Sex/[id number] //M /M Attending Physician Name: ZHANNA [id number] Patient Account:[id number] [facility] Page -1 of 1 All edits/amendments must be made on the electronic document DICTATION DATE: 05/19/20 1509 LOCAL HAZMAT DRIVER: FRACISCO 05/19/20 1509 RPT#: [id number] DC DATE:05/18/20 STATUS: DIS IN [facility] [address] [place] [address] END OF REPORT
== END 2020-05-18 09:58 | disposition hospice, home (50) | DRG 91 ==
LOC: D.MS 15:00
PROVIDERS: Emergency Medicine; Family Medicine; Internal Medicine Nephrology; ADMIT Family Medicine; ATTEND Family Medicine
DX: G92 Toxic encephalopathy (principal); J18.9 Pneumonia, unspecified organism; Z94.0 Kidney transplant status; I25.10 Atherosclerotic heart disease of native coronary artery without angina pectoris; I10 Essential (primary) hypertension; K21.9 Gastro-esophageal reflux disease without esophagitis; M10.9 Gout, unspecified; E83.42 Hypomagnesemia; I48.91 Unspecified atrial fibrillation; E78.5 Hyperlipidemia, unspecified